=== PATIENT | female | born 1940 | race Caucasian/White ===

== ENCOUNTER 2016-11-15 17:58 | Emergency (ER) | payer MEDICARE, OTHER ==
--- NOTE | 2016-11-15 18:30 | ER Document Report ---
ED Medical Screen (RME) - General Stated Complaint: ABDOMINAL PAIN Notes: 76 yo female c/o left flank pain x 2 days. has had mild pain, but was able to stretch and relieve pain. pain intensified today. nonradiating. aggrevated with movement. no dysuria. no fever. no nausea. TRAVEL OUTSIDE OF THE [place] IN LAST 30 DAYS: No - Related Data Allergies/Adverse Reactions: No Known Allergies Allergy (Verified 11/15/16 18:25) Past Medical History - Past Medical History Cardiac Medical History: Reports: Hx Coronary Artery Disease, Hx Hypertension Denies: Hx Heart Attack Pulmonary Medical History: Denies: Hx Asthma, Hx Bronchitis, Hx COPD, Hx Pneumonia Neurological Medical History: Denies: Hx Cerebrovascular Accident, Hx Seizures Musculoskeltal Medical History: Denies Hx Arthritis Past Surgical History: Denies: Hx Hysterectomy - Immunizations Hx Diphtheria, Pertussis, Tetanus Vaccination: Yes Physical Exam - Vital signs Vitals: Temp Pulse Resp BP Pulse Ox 98.1 F 75 16 152/77 H 97 11/15/16 18:23 11/15/16 18:23 11/15/16 18:23 11/15/16 18:23 11/15/16 18:23 Course - Vital Signs Vital signs: Temp Pulse Resp BP Pulse Ox 98.1 F 75 16 152/77 H 97 11/15/16 18:23 11/15/16 18:23 11/15/16 18:23 11/15/16 18:23 11/15/16 18:23
[2016-11-15 19:05] LABS: ABSOLUTE BASOPHILS # (AUTO) 0.1 10^3/uL (0.0-0.2); ABSOLUTE EOSINOPHILS # (AUTO) 0.4 10^3/uL (0.0-0.6); ABSOLUTE LYMPHOCYTES (AUTO) 2.6 10^3/uL (0.5-4.7); ABSOLUTE MONOCYTES (AUTO) 0.6 10^3/uL (0.1-1.4); ABSOLUTE NEUT (AUTO) 4.8 10^3/uL (1.7-8.2); BASOPHILS % (AUTO) 1.3 % (0-2); EOSINOPHILS % (AUTO) 4.5 % (0-6); HEMATOCRIT 36.7 % (36.0-47.0); HGB HCT DIFFERENCE 2.3; LYMPHOCYTES % (AUTO) 30.2 % (13-45); MEAN CORPUSCULAR HEMOGLOBIN 30.8 pg (27.0-33.4); MEAN CORPUSCULAR HGB CONC 35.6 g/dL (32.0-36.0); MEAN CORPUSCULAR VOLUME 87 fl (80-97); MONOCYTES % (AUTO) 6.7 % (3-13); RED BLOOD COUNT 4.23 10^6/uL (3.72-5.28); RED CELL DISTRIBUTION WIDTH 13.6 % (11.5-14.0); SEGMENTED NEUTROPHILS % (AUTO) 57.3 % (42-78); WHITE BLOOD COUNT 8.4 10^3/uL (4.0-10.5)
[2016-11-15 19:32] LABS: ALANINE AMINOTRANSFERASE 76 U/L (9-52); ALBUMIN 3.9 g/dL (3.5-5.0); ALKALINE PHOSPHATASE 75 U/L (38-126); ANION GAP 10 (5-19); ASPARTATE AMINO TRANSFERASE 71 U/L (14-36); BILIRUBIN,TOTAL 0.6 mg/dL (0.2-1.3); BLOOD UREA NITROGEN 25 mg/dL (7-20); CALCIUM 9.1 mg/dL (8.4-10.2); CARBON DIOXIDE 29 mmol/L (22-30); CHLORIDE 96 mmol/L (98-107); CREATININE RESULT 1.07 mg/dL (0.52-1.25); GLUCOSE 88 mg/dL (75-110); POTASSIUM 4.1 mmol/L (3.6-5.0); SODIUM 135.3 mmol/L (137-145); TOTAL PROTEIN 7.3 g/dL (6.3-8.2)
[2016-11-15] MEDS ORDERED: KETOROLAC TROMETHAMINE INJ/PF 30 MG/1 ML SDV IV ONE (20:18)
[2016-11-15] MEDS ORDERED: NORMAL SALINE 1000 ML 1,000 ML IV ONE (20:18)
--- NOTE | 2016-11-15 20:19 | ER Document Report ---
ED General Pain - General Chief Complaint: Back Pain Stated Complaint: ABDOMINAL PAIN Mode of Arrival: Ambulatory Information source: Patient Notes: Patient is a 76 year old female who presents to the ER today for left flank and side pain that began yesterday. She denies any injury, but does have history of kidney stones. She denies any dysuria, hematuria, abdominal pain, fever, chills, nausea, vomiting. She states that it hurts worse with movement but if she sits still she feels much better. She denies any radiation down the left leg, numbness or tingling. TRAVEL OUTSIDE OF THE [place] IN LAST 30 DAYS: No - Related Data Allergies/Adverse Reactions: No Known Allergies Allergy (Verified 11/15/16 18:25) Past Medical History - General Information source: Patient - Social History Smoking Status: Never Smoker Chew tobacco use (# tins/day): No Frequency of alcohol use: None Drug Abuse: None Family History: Reviewed & Not Pertinent Patient has suicidal ideation: No Patient has homicidal ideation: No - Past Medical History Cardiac Medical History: Reports: Hx Coronary Artery Disease, Hx Hypertension Denies: Hx Heart Attack Pulmonary Medical History: Denies: Hx Asthma, Hx Bronchitis, Hx COPD, Hx Pneumonia Neurological Medical History: Denies: Hx Cerebrovascular Accident, Hx Seizures Renal/ Medical History: Denies: Hx Peritoneal Dialysis Musculoskeltal Medical History: Denies Hx Arthritis Past Surgical History: Denies: Hx Hysterectomy - Immunizations Hx Diphtheria, Pertussis, Tetanus Vaccination: Yes Hx Pneumococcal Vaccination: 11/05/12 Review of Systems - Review of Systems Constitutional: No symptoms reported EENT: No symptoms reported Cardiovascular: No symptoms reported Respiratory: No symptoms reported Gastrointestinal: No symptoms reported Genitourinary: See HPI Female Genitourinary: No symptoms reported Musculoskeletal: See HPI Skin: No symptoms reported Hematologic/Lymphatic: No symptoms reported Neurological/Psychological: No symptoms reported Physical Exam - Vital signs Vitals: Temp Pulse Resp BP Pulse Ox 98.1 F 75 16 152/77 H 97 11/15/16 18:23 11/15/16 18:23 11/15/16 18:23 11/15/16 18:23 11/15/16 18:23 - Notes Notes: PHYSICAL EXAMINATION: GENERAL: Crying, holding left side, obviously in pain, in mild acute distress. HEAD: Atraumatic, normocephalic. EYES: Pupils equal round and reactive to light, extraocular movements intact, sclera anicteric, conjunctiva are normal. NECK: Normal range of motion, supple without lymphadenopathy LUNGS: CTAB and equal. No wheezes rales or rhonchi. HEART: Regular rate and rhythm without murmurs ABDOMEN: Soft, left side tenderness. No guarding, no rebound BACK: Left lower back tenderness, no vertebral tenderness, normal ROM GI/: Mild left CVA tenderness EXTREMITIES: Normal range of motion, no pitting edema. No cyanosis. NEUROLOGICAL: Cranial nerves grossly intact. Normal sensory/motor exams. PSYCH: Normal mood, normal affect. SKIN: Warm, Dry, normal turgor, no rashes or lesions noted Course - Re-evaluation Re-evalutation: 11/16/16 07:02 Lab work is unremarkable today including a normal urinalysis with no hematuria. CAT scan was performed to rule out kidney stone and was negative. It did show an abdominal aortic aneurysm that has grown from 3.1 cm to 4.4 cm since 2008 but has no evidence of leakage. In it also showed some kidney atrophy. On lab work kidney function is not worrisome. I have advised patient she needs to follow-up with who follows her for her abdominal aortic aneurysm as it has grown. It is not surgical at this point. Patient feels much better after pain medication and muscle relaxers and can move without any pain. She would like to go home. - Vital Signs Vital signs: Temp Pulse Resp BP Pulse Ox 97.8 F 52 L 16 138/57 H 95 11/16/16 00:27 11/16/16 00:27 11/16/16 00:27 11/16/16 00:27 11/16/16 00:27 - Laboratory Result Diagrams: 11/15/16 18:30 11/15/16 18:30 Laboratory results interpreted by me: 11/15/16 11/15/16 18:30 20:10 Sodium 135.3 L Chloride 96 L BUN 25 H Est GFR (Non-Af Amer) 50 L AST 71 H ALT 76 H Ur Leukocyte Esterase TRACE H Discharge - Discharge Clinical Impression: Left low back pain Qualifiers: Chronicity: acute Sciatica presence: without sciatica Qualified Code(s): M54.5 - Low back pain Condition: Stable Disposition: HOME, SELF-CARE Instructions: Ice Packs ([facility]), Low Back Pain ([facility]), Warm Packs ([facility]) Additional Instructions: Your abdominal aortic aneurysm has grown since 2008, still not at the point where you need surgery but please follow up with whoever follows this for you. Return immediately for any new or worsening symptoms. Follow up with primary care provider, call tomorrow to make followup appointment. Prescriptions: Methocarbamol [Robaxin 500 mg Tablet] 500 mg PO QID #40 tablet
[2016-11-15 20:25] LABS: APPEARANCE,URINE CLEAR; BILIRUBIN,URINE NEGATIVE (NEGATIVE); GLUCOSE, URINE NEGATIVE (NEGATIVE); KETONES,URINE NEGATIVE (NEGATIVE); LEUKOCYTE ESTERASE,URINE TRACE (NEGATIVE); NITRITE,URINE NEGATIVE (NEGATIVE); PROTEIN,URINE NEGATIVE (NEGATIVE); URINE SPECIFIC GRAVITY 1.009; UROBILINOGEN,URINE NEGATIVE mg/dL (<2.0)
[2016-11-15] MEDS ORDERED: OXYCODONE-ACETAMINOPHEN 5-325 MG TABLET PO ONE (21:31)
[2016-11-15] MEDS ORDERED: CYCLOBENZAPRINE HCL 10 MG TABLET PO ONE (22:44)
[2016-11-16 03:54] VITALS: BP 138/57
== END 2016-11-16 00:25 | disposition home or self-care (01) ==
LOC: ER 17:58
DX: M54.5 Low back pain (principal); I71.4 Abdominal aortic aneurysm, without rupture; R10.9 Unspecified abdominal pain; I25.10 Atherosclerotic heart disease of native coronary artery without angina pectoris; I12.9 Hypertensive chronic kidney disease with stage 1 through stage 4 chronic kidney disease, or unspecified chronic kidney disease; N18.9 Chronic kidney disease, unspecified; Z87.442 Personal history of urinary calculi
CPT/HCPCS: 99284; 36415; 85025; 80053; 81001; 76380; A9270 ×2

== ENCOUNTER → 2017-07-16 | Outpatient (CLI) | payer MEDICARE, OTHER ==
--- NOTE | 2017-07-16 13:18 | WOMENS IMAGING REPORT ---
EXAM DESCRIPTION: BONE DENSITY HIP/SPINE COMPLETED DATE/TIME: 07/16/2017 1:02 pm REASON FOR STUDY: OSTEOPOROSIS M81.0 AGE-RELATED OSTEOPOROSIS W/O CURRENT PATHOLOGICAL FRAC COMPARISON: 08/18/2010 06/22/2008 10/11/2004 TECHNIQUE: Dual-Energy X-ray Absorptiometry (DEXA) of the AP Spine and Hip. LIMITATIONS: None. FINDINGS: LUMBAR SPINE: The bone mineral density (BMD) measured from L1-L4 in the AP projection correlates with a T-score of 4.3, which is normal as defined by the World Health Organization. HIP: The bone mineral density (BMD) measured in the left hip correlates with a T-score of -2.0 in the femo ral neck, which is osteopenia as defined by the World Health Organization. IMPRESSION: 1. LUMBAR SPINE: Normal 2. HIP: Osteopenia COMMENT: The World Health Organization defines low BMD as follows: T-score: Normal: Greater than -1.0 Osteopenia: Between -1.0 and -2.5 Osteoporosis: Less than -2.5 without fractures Established osteoporosis: Less than -2.5 with fractures In general, you may wish to consider: Diagnosis Treatment Follow-up DEXA Normal BMD Prevention 2-3 years Osteopenia Prevention/Therapy 1-2 years Osteoporosis Therapy Yearly TECHNICAL DOCUMENTATION: JOB ID: [id number]- All Rights Reserved
== END ==
LOC: WI 12:35
PROVIDERS: ATTEND Internal Medicine
DX: M81.0 Age-related osteoporosis without current pathological fracture (principal)
CPT/HCPCS: 77080

== ENCOUNTER 2017-07-22 10:06 | Emergency (ER) | payer MEDICARE, OTHER ==
[2017-07-22 10:12] VITALS: BP 144/68
--- NOTE | 2017-07-22 10:36 | ER Document Report ---
ED General - General Chief Complaint: High Blood Pressure Stated Complaint: BLOOD PRESSUE PROBLEM Time Seen by Provider: 07/22/17 10:35 TRAVEL OUTSIDE OF THE [place] IN LAST 30 DAYS: No - HPI Patient complains to provider of: Blood pressure issue Notes: Patient coming in for further evaluation of her blood pressure. Patient with this morning and had a elevated reading of 180 systolically came to the ER for further evaluation. Patient otherwise states no other symptoms resting comfortably upon my evaluation states over the past 4 months intermittent headaches and fatigue states recent change of her blood pressure medication from termination pill losartan hydrochlorothiazide to now just losartan. Patient states compliant with her medications did take him this morning patient also states takes metoprolol at 50 mg. Patient states compliant with that medication as well. Blood pressure here upon initial arrival to ER she was systolic of 144. Patient is concerned that her machine may be reading wrong. Denies fevers chills nausea vomiting chest pain abdominal pain - Related Data Allergies/Adverse Reactions: No Known Allergies Allergy (Verified 11/15/16 18:25) Past Medical History - Social History Smoking Status: Current Every Day Smoker Chew tobacco use (# tins/day): - 6-8 cigarettes/day Frequency of alcohol use: None Drug Abuse: None Family History: Reviewed & Not Pertinent - Past Medical History Cardiac Medical History: Reports: Hx Coronary Artery Disease, Hx Hypertension Denies: Hx Heart Attack Pulmonary Medical History: Denies: Hx Asthma, Hx Bronchitis, Hx COPD, Hx Pneumonia Neurological Medical History: Denies: Hx Cerebrovascular Accident, Hx Seizures Renal/ Medical History: Denies: Hx Peritoneal Dialysis Musculoskeltal Medical History: Denies Hx Arthritis Past Surgical History: Denies: Hx Hysterectomy - Immunizations Hx Diphtheria, Pertussis, Tetanus Vaccination: Yes Hx Pneumococcal Vaccination: 11/05/12 Review of Systems - Review of Systems Constitutional: Other - Blood pressure concern EENT: No symptoms reported Cardiovascular: No symptoms reported Respiratory: No symptoms reported Gastrointestinal: No symptoms reported Genitourinary: No symptoms reported Female Genitourinary: No symptoms reported Musculoskeletal: No symptoms reported Skin: No symptoms reported Hematologic/Lymphatic: No symptoms reported Neurological/Psychological: No symptoms reported Physical Exam - Vital signs Vitals: Temp Pulse Resp BP Pulse Ox 98.3 F 75 16 144/68 H 97 07/22/17 10:10 07/22/17 10:10 07/22/17 10:10 07/22/17 10:10 07/22/17 10:10 Interpretation: Normal - General General appearance: Appears well, Alert - HEENT Head: Normocephalic, Atraumatic Eyes: Normal Pupils: PERRL - Respiratory Respiratory status: No respiratory distress Chest status: Nontender Breath sounds: Normal Chest palpation: Normal - Cardiovascular Rhythm: Regular Heart sounds: Normal auscultation Murmur: No - Abdominal Inspection: Normal Distension: No distension Bowel sounds: Normal Tenderness: Nontender Organomegaly: No organomegaly - Back Back: Normal, Nontender - Extremities General upper extremity: Normal inspection, Nontender, Normal color, Normal ROM , Normal temperature General lower extremity: Normal inspection, Nontender, Normal color, Normal ROM , Normal temperature, Normal weight bearing. No: Trey's sign - Neurological Neuro grossly intact: Yes Cognition: Normal Orientation: AAOx4 Annie Coma Scale Eye Opening: Spontaneous Annie Coma Scale Verbal: Oriented Hershey Coma Scale Motor: Obeys Commands Annie Coma Scale Total: 15 Speech: Normal Motor strength normal: LUE, RUE, LLE, RLE Sensory: Normal - Psychological Associated symptoms: Normal affect, Normal mood - Skin Skin Temperature: Warm Skin Moisture: Dry Skin Color: Normal Course - Re-evaluation Re-evalutation: 07/22/17 10:58 Blood pressure here in the right arm with patient positioning shows a systolic of 120 ER machine read 116. Patient still remains asymptomatic. Explained to the patient that with her high readings early in the morning before she takes her medication she may want to discuss with her family physician of extending her increasing her metoprolol dose. Recommend patient continue to monitor blood pressure take blood pressure medications at same time recorded 2 readings 1 in the morning while at night and follow-up with your primary care physician in the next 2-3 weeks. - Vital Signs Vital signs: Temp Pulse Resp BP Pulse Ox 98.3 F 75 16 144/68 H 97 07/22/17 10:10 07/22/17 10:10 07/22/17 10:10 07/22/17 10:10 07/22/17 10:10 Discharge - Discharge Clinical Impression: Blood pressure concerns Condition: Good Instructions: High Blood Pressure ([facility]) Additional Instructions: Continue take your blood pressure medication as previously prescribed. However highly recommend that she follow-up with your primary care physician in approximately 2-3 weeks. Continue to take her medication at the same time each day. Continue to take her blood pressure readings earlier in the morning I would also recommend taking her blood pressure around 11:00 noon at you take your morning medication. Return to the ER for any concerns.
== END 2017-07-22 10:38 | disposition home or self-care (01) ==
LOC: ER 10:06
DX: R03.0 Elevated blood-pressure reading, without diagnosis of hypertension (principal); F17.210 Nicotine dependence, cigarettes, uncomplicated
CPT/HCPCS: 99283

== ENCOUNTER → 2017-10-09 | Outpatient (CLI) | payer MEDICARE, OTHER ==
--- NOTE | 2017-10-09 14:29 | WOMENS IMAGING REPORT ---
EXAM DESCRIPTION: 3D SCREENING MAMMO BILAT COMPLETED DATE/TIME: 10/09/2017 9:32 am REASON FOR STUDY: ROUTINE SCREENING; Z12.31 Z12.31 ENCNTR SCREEN MAMMOGRAM FOR MALIGNANT NEOPLASM O F TREY COMPARISON: None. TECHNIQUE: Standard craniocaudal and mediolateral oblique views of each breast recorded using digita l acquisition and breast tomosynthesis. LIMITATIONS: None. FINDINGS: Findings present which are benign by mammographic criteria. No suspicious masses, calcifi cations or architectural distortion. Pertinent benign findings: Benign calcifications. Read with the assistance of CAD. .[facility] - R2 Cenova Version 1.3 .[facility] - R2 Cenova Version 1.3 .[facility] - R2 Cenova Version 2.4 .[facility] - R2 Cenova Version 2.4 .[facility] - R2 Professor Of Chemistry Version 9.2 Benign mammographic findings may include one or more of the following: Smooth masses, popcorn/rim/co arse calcifications, asymmetries, post-procedure changes, and lesions with long-standing stability. IMPRESSION: BENIGN MAMMOGRAPHIC FINDINGS. BIRADS 2 BREAST DENSITY: b. There are scattered areas of fibroglandular density. BIRAD: 2 BENIGN FINDING(S) RECOMMENDATION: RECOMMENDATION: ROUTINE SCREENING COMMENT: The patient has been notified of the results by letter per MQSA requirements. Additional no tification policies are in place for contacting patient with suspicious or incomplete findings. Quality ID #[id number]: The [employer] recommends an annual screening mammogram for women aged 40 years or over. This facility utilizes a reminder system to ensure that all patients receive reminder letters, and/or direct phone calls for appointments. This includes reminders for routine scr eening mammograms, diagnostic mammograms, or other Breast Imaging Interventions when appropriate. Th is patient will be placed in the appropriate reminder system. The [employer] (ACR) has developed recommendations for screening MRI of the breast s in certain patient populations, to be used in conjunction with mammography. Breast MRI surveillanc e may be appropriate for women with more than 20% lifetime risk of developing breast cancer as deter mined by genetic testing, significant family history of the disease, or history of mantle radiation f or Hodgkins Disease. ACR Practice Guidelines 2008. DBT Technology DBT is a type of tomographic mammography. With conventional mammography, overlapping breast tissue ma y make lesions difficult to detect, even with good compression. DBT uses an x-ray tube that rotates a round the breast, taking images at different angles. These images are then combined to create thin sl ices of the breast that the radiologist can view as a 3D reconstruction. The Hologic unit can perform full-field digital mammograms (2D imaging); or DBT (3D imaging); or both, in a combination mode that quickly performs both the mammogram and the tomosynthesis scan while the breast is still compressed. PQRS 6045F: Fluoroscopic imaging is not utilized for breast tomosynthesis. TECHNICAL DOCUMENTATION: FINDING NUMBER: (1) ASSESSMENT: (1) JOB ID: [id number] [employer]- All Rights Reserved
== END ==
LOC: WI 08:21
PROVIDERS: ATTEND Internal Medicine
DX: Z12.31 Encounter for screening mammogram for malignant neoplasm of breast (principal)
CPT/HCPCS: 77063; G0202; 77067

== ENCOUNTER 2017-12-15 10:49 | Emergency (ER) | payer MEDICARE, OTHER ==
[2017-12-15 11:21] LABS: ABSOLUTE BASOPHILS # (AUTO) 0.1 10^3/uL (0.0-0.2); ABSOLUTE EOSINOPHILS # (AUTO) 0.3 10^3/uL (0.0-0.6); ABSOLUTE LYMPHOCYTES (AUTO) 2.3 10^3/uL (0.5-4.7); ABSOLUTE MONOCYTES (AUTO) 0.5 10^3/uL (0.1-1.4); ABSOLUTE NEUT (AUTO) 4.7 10^3/uL (1.7-8.2); BASOPHILS % (AUTO) 1.2 % (0-2); EOSINOPHILS % (AUTO) 4.1 % (0-6); HEMATOCRIT 39.1 % (36.0-47.0); HEMOGLOBIN 13.4 g/dL (12.0-15.5); MEAN CORPUSCULAR HEMOGLOBIN 30.4 pg (27.0-33.4); MEAN CORPUSCULAR HGB CONC 34.4 g/dL (32.0-36.0); MEAN CORPUSCULAR VOLUME 88 fl (80-97); MONOCYTES % (AUTO) 6.1 % (3-13); PLATELET COUNT 268 10^3/uL (150-450); RED BLOOD COUNT 4.43 10^6/uL (3.72-5.28); SEGMENTED NEUTROPHILS % (AUTO) 59.6 % (42-78); TOTAL CELLS COUNTED % (AUTO) 100 %; WHITE BLOOD COUNT 7.8 10^3/uL (4.0-10.5)
[2017-12-15 11:44] LABS: ALANINE AMINOTRANSFERASE 36 U/L (9-52); ALBUMIN 3.6 g/dL (3.5-5.0); ALKALINE PHOSPHATASE 61 U/L (38-126); ANION GAP 7 (5-19); ASPARTATE AMINO TRANSFERASE 34 U/L (14-36); BILIRUBIN,DIRECT 0.4 mg/dL (0.0-0.4); BILIRUBIN,TOTAL 0.6 mg/dL (0.2-1.3); BLOOD UREA NITROGEN 16 mg/dL (7-20); CALCIUM 9.4 mg/dL (8.4-10.2); CARBON DIOXIDE 29 mmol/L (22-30); CHLORIDE 102 mmol/L (98-107); CREATINE KINASE 59 U/L (30-135); GLUCOSE 141 mg/dL (75-110); POTASSIUM 4.5 mmol/L (3.6-5.0); SODIUM 137.7 mmol/L (137-145); TOTAL PROTEIN 6.5 g/dL (6.3-8.2)
--- NOTE | 2017-12-15 11:47 | ER Document Report ---
ED Dizziness/Weakness - General Chief Complaint: Dizziness Stated Complaint: WEAKNESS Time Seen by Provider: 12/15/17 11:41 Notes: Patient says that she began to feel as if she was going to pass out about 9:30 AM this morning. She was nauseated although she never vomited. She noticed her lips were quivering and she became very sweaty. She had some discomfort in her abdomen. She has a history of mesenteric ischemia, but this current abdominal discomfort does not feel like symptoms from her mesenteric ischemia. Patient says that she ate breakfast about 9:00. She saw her local temper mill roller , Dr. Díaz, who is adjusting her blood pressure medicine. He discontinued her Toprol that she was then taking and had her start taking Coreg twice a day, her first dose is being yesterday and she also took one this morning with her breakfast. They took her blood pressure earlier this morning and it was 179/90. After she had her breakfast and her Coreg this morning, she started having all these symptoms and they were unable to obtain a reading on her blood pressure machine. He kept saying "error". Patient denies having any chest pains. No significant shortness of breath. Nauseated but never vomited. No UTI symptoms. No fevers, but did have the sweats. PMH: Appendectomy, right hip replacement, thyroid surgery, hypertension, cholesterol, MVP. TRAVEL OUTSIDE OF THE [place] IN LAST 30 DAYS: No - Related Data Allergies/Adverse Reactions: No Known Allergies Allergy (Verified 11/15/16 18:25) Past Medical History - Social History Smoking Status: Current Some Day Smoker Cigarette use (# per day): Yes Chew tobacco use (# tins/day): No Frequency of alcohol use: None Drug Abuse: None Family History: Reviewed & Not Pertinent Patient has suicidal ideation: No Patient has homicidal ideation: No - Past Medical History Cardiac Medical History: Reports: Hx Coronary Artery Disease, Hx Hypercholesterolemia, Hx Hypertension Denies: Hx Heart Attack GI Medical History: Reports: Other - History of mesenteric ischemia. Musculoskeltal Medical History: Denies Hx Arthritis Past Surgical History: Reports: Hx Adenoidectomy, Hx Orthopedic Surgery - right hip replacement, Hx Thyroid Surgery - removed. Denies: Hx Cholecystectomy, Hx Hysterectomy - Immunizations Hx Diphtheria, Pertussis, Tetanus Vaccination: Yes Hx Pneumococcal Vaccination: 11/05/12 Review of Systems - Review of Systems Notes: REVIEW OF SYSTEMS: CONSTITUTIONAL : Denies fever, but heavy sweats this morning at the time of her symptoms, but resolved now. EENT: Denies eye, ear, nose or mouth or throat pain or other symptoms. CARDIOVASCULAR: Denies chest pain. RESPIRATORY: Denies cough, chest congestion, or shortness of breath. GASTROINTESTINAL: See HPI. GENITOURINARY: Denies difficulty or painful urinating, urinary frequency, blood in urine. MUSCULOSKELETAL: Denies back or neck pain. Denies joint pain or swelling. SKIN: Denies rash or skin lesions. NEUROLOGICAL: Denies LOC or altered mental status. Denies headache. Denies sensory loss or motor deficits. ALL OTHER SYSTEMS REVIEWED AND NEGATIVE. Physical Exam - Vital signs Vitals: Pulse Resp BP Pulse Ox 70 18 124/55 L 97 12/15/17 11:10 12/15/17 11:10 12/15/17 11:10 12/15/17 11:10 Interpretation: Normal - Notes Notes: PHYSICAL EXAMINATION: GENERAL: Well-appearing, in no acute distress. Vital signs are currently normal at the bedside. HEAD: Atraumatic, normocephalic. NECK: Normal range of motion, supple. No carotid bruits heard. LUNGS: Breath sounds clear except for an occasional wheeze heard and equal bilaterally. HEART: Regular rate and rhythm without murmurs. ABDOMEN: Soft, nontender. No guarding or rebound. No masses. No bruits heard. BACK: No tenderness throughout entire back. EXTREMITIES: Normal range of motion without pain. NEUROLOGICAL: Normal speech, normal gait. Normal sensory, motor, and reflex exams. Awake, alert, and oriented x3. Cranial nerves normal. PSYCH: Normal mood, normal affect. SKIN: Warm, dry, no rashes. Course - Re-evaluation Re-evalutation: 12/15/17 14:35 Labs are all normal. 12/15/17 14:35 Patient's vitals remain stable and her blood pressure is 140/73 with a heart rate of 67 and O2 sat of 97%. 12/15/17 14:36 Patient has no symptoms or complaints at this time. Most likely culprit here is her recent change in medications. I have advised the patient that she can resume taking both of the pills of Coreg a day, as instructed or she could leave one off until she talks with Dr. Díaz on Sunday. - Vital Signs Vital signs: Temp Pulse Resp BP Pulse Ox 98.0 F 70 23 H 150/65 H 95 12/15/17 11:32 12/15/17 11:10 12/15/17 14:00 12/15/17 14:00 12/15/17 14:00 - Laboratory Result Diagrams: 12/15/17 10:30 12/15/17 10:30 Laboratory results interpreted by me: 12/15/17 12/15/17 10:30 11:36 Est GFR ( Amer) 58 L Est GFR (Non-Af Amer) 48 L Glucose 141 H Urine Protein 100 H Ur Leukocyte Esterase SMALL H - EKG Interpretation by Me EKG shows normal: Sinus rhythm Rate: Normal Rhythm: NSR, APC's Voltage: Consistant with LVH Discharge - Discharge Clinical Impression: Near syncope, Medication side effects Condition: Stable Disposition: HOME, SELF-CARE Additional Instructions: NEAR SYNCOPAL EPISODE: Syncope or near syncope (fainting or near-fainting) can occur from many different health problems. Or it can be a simple fainting spell requiring no treatment. It is safe for you to go home, but further evaluation will likely be necessary. Your work-up may include tests for internal bleeding, heart disease, medication problems, or near-strokes. Tests are not always required, however, depending on the nature of your problem. The warning signs of an impending faint include: dizziness, lightheadedness , nausea, hot flashes, tingling, and weakness. If this happens, lay down and put your feet up, then wait until all of these symptoms have passed before standing up again. If these episodes become recurrent, or if you develop chest pain, heart palpitations, mental confusion, blurred vision, or headache, then you should call the physician, or go to the emergency room. Medication Side Effects Your unpleasant symptoms are due to a drug you're taking. These symptoms are a common side effect of the medicine. It's not a true allergy. We stop any unnecessary drugs when bothersome side effects occur. Sometimes we'll substitute a different type of drug. In other cases, we must continue the drug. If so, we try to find a way to decrease the side effects. Many side effects decrease with time. Call us if the symptoms don't go away. NORMAL EXAM AND WORKUP: At this time, your examination and workup show no significant abnormality. No significant abnormal physical findings were noted. All laboratory, EKG, and imaging (x-ray, CT scans, ultrasound) studies that were ordered show no significant abnormality. Although your examination and all studies that were ordered showed no significant abnormal finding, there are no examinations and no studies that are 100% accurate. There is always the possibility that some abnormality could exist and not be detected with physical examination or within the limits and capabilities of laboratory and other studies. You should return or follow up as you were instructed on your visit today for further evaluation if your symptoms do not resolve. FOLLOW-UP CARE: If you have been referred to a physician for follow-up care, call the physician s office for an appointment as you were instructed or within the next two days. If you experience worsening or a significant change in your symptoms, notify the physician immediately or return to the Emergency Department at any time for re-evaluation. Follow-up with Dr. Díaz Sunday and make them aware of your visit to the emergency department. If you wish to continue the Coreg, I think it will be okay to take it as directed. However, if you have concerns, leave 1 of the Coreg pills off each day until you talk with Dr. Díaz office on Sunday. Return for reevaluation if you develop new or worsening symptoms, such as chest pain, loss of consciousness, etc.
[2017-12-15 12:07] LABS: CREATINE KINASE MB 1.32 ng/mL (<4.55)
[2017-12-15 12:09] LABS: TROPONIN I < 0.012 ng/mL
[2017-12-15 12:11] LABS: APPEARANCE,URINE SLIGHTLY-CLOUDY; BILIRUBIN,URINE NEGATIVE (NEGATIVE); COLOR,URINE YELLOW; GLUCOSE, URINE NEGATIVE (NEGATIVE); KETONES,URINE NEGATIVE (NEGATIVE); LEUKOCYTE ESTERASE,URINE SMALL (NEGATIVE); NITRITE,URINE NEGATIVE (NEGATIVE); PROTEIN,URINE 100 mg/dL (NEGATIVE); URINE SPECIFIC GRAVITY 1.011; UROBILINOGEN,URINE NEGATIVE mg/dL (<2.0)
[2017-12-15 14:46] VITALS: BP 130/60
--- NOTE | 2017-12-16 09:01 | EKG REPORT ---
SEVERITY:- ABNORMAL ECG - SINUS RHYTHM ATRIAL PREMATURE COMPLEX PROBABLE LVH WITH SECONDARY REPOL ABNRM ANTERIOR Q WAVES, POSSIBLY DUE TO LVH : Confirmed by: Donte Bennett 16-Dec-2017 09:00:44
== END 2017-12-15 14:55 | disposition home or self-care (01) ==
LOC: ER 10:49
DX: R55 Syncope and collapse (principal); T50.905A Adverse effect of unspecified drugs, medicaments and biological substances, initial encounter; R53.1 Weakness; R11.0 Nausea; F17.210 Nicotine dependence, cigarettes, uncomplicated; I25.10 Atherosclerotic heart disease of native coronary artery without angina pectoris; E78.00 Pure hypercholesterolemia, unspecified; I10 Essential (primary) hypertension; Y92.9 Unspecified place or not applicable
CPT/HCPCS: 36415; 80053; 81001; 82550; 82553; 84484; 85025; 93005; 93010; 99284

== ENCOUNTER → 2018-05-13 | Outpatient (CLI) | payer MEDICARE, OTHER ==
--- NOTE | 2018-05-13 14:47 | XCELERA REPORT ---
[address] [address] Lower Extremity Arterial Evaluation Name: DIO JARQUIN I Age: 77 yrs Gender: Female : 1940 Patient Status: Outpatient Patient Location: Study Date: 05/13/2018 09:18 AM Procedure: A color flow and duplex scan of the lower extremity arteries was performed bilaterally with velocity and waveform anaylsis. Ankle brachial indicies performed. Reason For Study: FOOT PAIN Ordering Physician: ILSA MOORE Performed By: Zane Chapa Measurements and Calculations Right Left PERSONNEL PLACEMENT SPECIALIST PSV 31.4 81.2 cm/sec Prox PFA PSV -22.0 -35.4 cm/sec Prox SFA PSV 35.0 61.3 cm/sec Mid SFA PSV -28.7 -49.3 cm/sec Dist SFA PSV -27.5 -34.3 cm/sec Prox Pop A PSV 24.9 40.2 cm/sec Dist SOTERO PSV 10.6 23.8 cm/sec Dist LETTER[employer] PRINTING MACHINIST PSV 15.9 -24.4 cm/sec Trey Pedis PSV 13.2 23.6 cm/sec Right Side Arterial Evaluation Diminished velocities and monophasic waveforms noted from the Common Femoral artery to the infrageniculate vessels. 50-99 % stenosis at the Aorto Iliac inflow. Ankle Brachial index unable to obtain due to low velocity.. Left Side Arterial Evaluation Diminished velocities and monophasic waveforms noted from the Common Femoral artery to the infrageniculate vessels. 50-99 % stenosis at the Aorto Iliac inflow. Ankle Brachial index 0.6 in the Dorsalis Pedis.. Interpretation Summary Severe hemodynamically significant lesions in the bilateral lower extremities, on duplex imaging, at rest. : ILSA MOORE [place]
== END ==
LOC: SP 08:40
PROVIDERS: ATTEND Podiatrist Foot Surgery
DX: M79.672 Pain in left foot (principal); M79.671 Pain in right foot; M79.89 Other specified soft tissue disorders; I73.9 Peripheral vascular disease, unspecified
CPT/HCPCS: 93922; 93925

== ENCOUNTER 2018-07-08 13:18 | Emergency (ER) | payer MEDICARE, OTHER ==
--- NOTE | 2018-07-08 14:01 | ER Document Report ---
ED Medical Screen (RME) - General Chief Complaint: Abdominal Pain >50 Stated Complaint: BLOOD PRESSURE PROBLEM Time Seen by Provider: 07/08/18 13:59 Mode of Arrival: Ambulatory Information source: Patient Notes: This is a 77-year-old female with a history of hypertension, mesenteric ischemia , AAA who presents to the emergency room with some abdominal discomfort in the setting of a low blood pressure. Patient states she normally gets some pain after eating and ate breakfast this morning and started have pain. She does follow her blood pressure and she did have a blood pressure that was in the 70s systolic. In the emergency room, her blood pressure is 118/64. She is not in any acute distress at this time. TRAVEL OUTSIDE OF THE [place] IN LAST 30 DAYS: No - Related Data Allergies/Adverse Reactions: No Known Allergies Allergy (Verified 07/08/18 13:24) Past Medical History - Social History Chew tobacco use (# tins/day): No Frequency of alcohol use: None Drug Abuse: None - Past Medical History Cardiac Medical History: Reports: Hx Coronary Artery Disease, Hx Hypercholesterolemia, Hx Hypertension Denies: Hx Heart Attack Pulmonary Medical History: Denies: Hx Asthma, Hx Bronchitis, Hx COPD, Hx Pneumonia Neurological Medical History: Denies: Hx Seizures Renal/ Medical History: Denies: Hx Peritoneal Dialysis Musculoskeltal Medical History: Denies Hx Arthritis Past Surgical History: Reports: Hx Adenoidectomy, Hx Orthopedic Surgery - right hip replacement, Hx Thyroid Surgery - removed. Denies: Hx Cholecystectomy, Hx Hysterectomy - Immunizations Hx Diphtheria, Pertussis, Tetanus Vaccination: Yes Physical Exam - Vital signs Vitals: Temp Pulse Resp BP Pulse Ox 97.8 F 82 18 118/64 96 07/08/18 13:25 07/08/18 13:25 07/08/18 13:25 07/08/18 13:25 07/08/18 13:25 Course - Vital Signs Vital signs: Temp Pulse Resp BP Pulse Ox 97.8 F 82 18 118/64 96 07/08/18 13:25 07/08/18 13:25 07/08/18 13:25 07/08/18 13:25 07/08/18 13:25 Doctor's Discharge - Discharge Referrals: ILSA MOORE DPM [Primary Care Provider] - Follow up as needed
[2018-07-08 14:23] LABS: ABSOLUTE BASOPHILS # (AUTO) 0.2 10^3/uL (0.0-0.2); ABSOLUTE EOSINOPHILS # (AUTO) 0.4 10^3/uL (0.0-0.6); ABSOLUTE LYMPHOCYTES (AUTO) 2.4 10^3/uL (0.5-4.7); ABSOLUTE MONOCYTES (AUTO) 0.7 10^3/uL (0.1-1.4); ABSOLUTE NEUT (AUTO) 6.1 10^3/uL (1.7-8.2); BASOPHILS % (AUTO) 1.8 % (0-2); EOSINOPHILS % (AUTO) 3.9 % (0-6); HEMATOCRIT 38.7 % (36.0-47.0); HEMOGLOBIN 13.3 g/dL (12.0-15.5); LYMPHOCYTES % (AUTO) 24.5 % (13-45); MEAN CORPUSCULAR HEMOGLOBIN 30.3 pg (27.0-33.4); MEAN CORPUSCULAR HGB CONC 34.4 g/dL (32.0-36.0); MEAN CORPUSCULAR VOLUME 88 fl (80-97); MONOCYTES % (AUTO) 7.2 % (3-13); PLATELET COUNT 281 10^3/uL (150-450); RED BLOOD COUNT 4.39 10^6/uL (3.72-5.28); RED CELL DISTRIBUTION WIDTH 13.3 % (11.5-14.0); SEGMENTED NEUTROPHILS % (AUTO) 62.6 % (42-78); TOTAL CELLS COUNTED % (AUTO) 100 %; WHITE BLOOD COUNT 9.7 10^3/uL (4.0-10.5)
[2018-07-08 14:44] LABS: ALANINE AMINOTRANSFERASE 33 U/L (9-52); ALBUMIN 3.9 g/dL (3.5-5.0); ALKALINE PHOSPHATASE 73 U/L (38-126); ANION GAP 12 (5-19); ASPARTATE AMINO TRANSFERASE 35 U/L (14-36); BILIRUBIN,DIRECT 0.3 mg/dL (0.0-0.4); BILIRUBIN,TOTAL 0.6 mg/dL (0.2-1.3); BLOOD UREA NITROGEN 22 mg/dL (7-20); CALCIUM 9.4 mg/dL (8.4-10.2); CARBON DIOXIDE 25 mmol/L (22-30); CHLORIDE 101 mmol/L (98-107); GLUCOSE 88 mg/dL (75-110); POTASSIUM 4.7 mmol/L (3.6-5.0); SODIUM 137.5 mmol/L (137-145); TOTAL PROTEIN 7.5 g/dL (6.3-8.2)
--- NOTE | 2018-07-08 14:47 | ER Document Report ---
ED General - General Chief Complaint: Abdominal Pain >50 Stated Complaint: BLOOD PRESSURE PROBLEM Time Seen by Provider: 07/08/18 13:59 Mode of Arrival: Ambulatory TRAVEL OUTSIDE OF THE [place] IN LAST 30 DAYS: No - HPI Notes: 77-year-old female with history of mesenteric ischemia and AAA presents with 3 days of abdominal pain and episode of low blood pressure today. She has a history of hypertension and takes medications throughout the day with good control. She states blood pressure was in the 70s over 50s today. She has been having increasing abdominal pain after eating for the past 3 days. She describes it as a "toothache." She denies similar pain with a mesenteric ischemia. She was diagnosed with this a few years ago and told that she would from it in 6 months. She is followed by vascular surgery for her abdominal aneurysm that was last noted to be about 3 cm. Last bowel movement yesterday was normal without blood or diarrhea. No nausea or vomiting. No fevers. Denies urinary changes. Has history of appendectomy. No other abdominal surgeries. - Related Data Allergies/Adverse Reactions: No Known Allergies Allergy (Verified 07/08/18 13:24) Past Medical History - General Information source: Patient - Social History Smoking Status: Current Every Day Smoker Chew tobacco use (# tins/day): No Frequency of alcohol use: None Drug Abuse: None Family History: Reviewed & Not Pertinent Patient has suicidal ideation: No Patient has homicidal ideation: No - Past Medical History Cardiac Medical History: Reports: Hx Coronary Artery Disease, Hx Hypercholesterolemia, Hx Hypertension Denies: Hx Heart Attack Pulmonary Medical History: Denies: Hx Asthma, Hx Bronchitis, Hx COPD, Hx Pneumonia Neurological Medical History: Denies: Hx Seizures Renal/ Medical History: Denies: Hx Peritoneal Dialysis Musculoskeletal Medical History: Denies Hx Arthritis Past Surgical History: Reports: Hx Adenoidectomy, Hx Appendectomy, Hx Orthopedic Surgery - right hip replacement, Hx Thyroid Surgery - removed. Denies: Hx Cholecystectomy, Hx Hysterectomy - Immunizations Hx Diphtheria, Pertussis, Tetanus Vaccination: Yes Hx Pneumococcal Vaccination: 11/05/12 Review of Systems - Review of Systems Notes: Constitutional: Negative for fever. HENT: Negative for sore throat. Eyes: Negative for visual changes. Cardiovascular: Negative for chest pain. Respiratory: Negative for shortness of breath. Gastrointestinal: Positive for abdominal pain, negative for vomiting or diarrhea. Genitourinary: Negative for dysuria. Musculoskeletal: Negative for back pain. Skin: Negative for rash. Neurological: Negative for headaches, weakness or numbness. 10 point ROS negative except as marked above and in HPI. Physical Exam - Vital signs Vitals: Temp Pulse Resp BP Pulse Ox 97.8 F 82 18 118/64 96 07/08/18 13:25 07/08/18 13:25 07/08/18 13:25 07/08/18 13:25 07/08/18 13:25 - Notes Notes: PHYSICAL EXAMINATION: GENERAL: Well-appearing, well-nourished and in no acute distress. HEAD: Atraumatic, normocephalic. EYES: Pupils equal round and reactive to light, extraocular movements intact, conjunctiva are normal. ENT: nares patent, oropharynx clear without exudates. Moist mucous membranes. NECK: Normal range of motion, supple without lymphadenopathy LUNGS: Breath sounds clear to auscultation bilaterally and equal. No wheezes rales or rhonchi. HEART: Regular rate and rhythm, no chest wall tenderness ABDOMEN: Soft, mild left lower quadrant tenderness, normoactive bowel sounds. No guarding, no rebound. No masses appreciated. EXTREMITIES: Normal range of motion, no pitting or edema. No cyanosis. NEUROLOGICAL: Cranial nerves grossly intact. Normal speech, normal gait. Normal sensory and motor exams. PSYCH: Normal mood, normal affect. SKIN: Warm, Dry, normal turgor, no rashes or lesions noted. Course - Re-evaluation Re-evalutation: 07/08/18 19:27 Blood pressure has remained elevated during entire ED stay. Urine sent for culture. Given Rocephin for UTI. CT shows slight enlargement of aneurysm at 4.5 cm. Patient states she has a follow-up appointment in September with vascular surgery. Advised to call tomorrow to inform of size change. Given copy of all results. She states pain is not changed but she does not want anything for pain. She remains comfortable and is laughing in the bed. At this time will discharge with return precautions and follow-up recommendations. Verbal discharge instructions given a the bedside and opportunity for questions given. Medication warnings reviewed. Patient is in agreement with this plan and has verbalized understanding of return precautions and the need for primary care follow-up in the next 24-72 hours. Voice dictation software was used. Chart was reviewed, but errors may exist. - Vital Signs Vital signs: Temp Pulse Resp BP Pulse Ox 98.3 F 82 19 148/70 H 95 07/08/18 18:00 07/08/18 13:25 07/08/18 18:00 07/08/18 18:00 07/08/18 18:00 - Laboratory Result Diagrams: 07/08/18 14:02 07/08/18 14:02 Laboratory results interpreted by me: 07/08/18 07/08/18 07/08/18 14:02 15:32 16:54 BUN 22 H Est GFR ( Amer) 58 L Est GFR (Non-Af Amer) 48 L Lactic Acid 0.6 L Ur Leukocyte Esterase LARGE H - Diagnostic Test Radiology reviewed: Reports reviewed Discharge - Discharge Clinical Impression: UTI (urinary tract infection) Qualifiers: Urinary tract infection type: acute cystitis Hematuria presence: without hematuria Qualified Code(s): N30.00 - Acute cystitis without hematuria Abdominal pain Qualifiers: Abdominal location: left lower quadrant Qualified Code(s): R10.32 - Left lower quadrant pain AAA (abdominal aortic aneurysm) Qualifiers: Presence of rupture: without rupture Qualified Code(s): I71.4 - Abdominal aortic aneurysm, without rupture Condition: Stable Disposition: HOME, SELF-CARE Instructions: Abdominal Pain ([facility]), Urinary Tract Infection ([facility]) Additional Instructions: Return for worsening or concerning symptoms. Take all antibiotic. Follow up urine culture results with your doctor. Talk to vascular surgery about enlarged aortic aneurysm. Return for any worsening or concerning symptoms. Prescriptions: Cephalexin Monohydrate [Keflex 500 mg Capsule] 500 mg PO Q6H 7 Days #28 capsule Referrals: ILSA MOORE DPM [Primary Care Provider] - Follow up in 3-5 days
[2018-07-08 17:18] LABS: APPEARANCE,URINE SLIGHTLY-CLOUDY; BILIRUBIN,URINE NEGATIVE (NEGATIVE); COLOR,URINE YELLOW; GLUCOSE, URINE NEGATIVE (NEGATIVE); KETONES,URINE NEGATIVE (NEGATIVE); LEUKOCYTE ESTERASE,URINE LARGE (NEGATIVE); NITRITE,URINE NEGATIVE (NEGATIVE); PROTEIN,URINE NEGATIVE (NEGATIVE); URINE SPECIFIC GRAVITY 1.009; UROBILINOGEN,URINE NEGATIVE mg/dL (<2.0)
[2018-07-08] MEDS ORDERED: CEFTRIAXONE INJ 1000 MG VIAL IV ONE (18:00)
--- NOTE | 2018-07-08 18:56 | RADIOLOGY REPORT (SQ) ---
EXAM DESCRIPTION: CT ABD/PELVIS WITH IV ORAL COMPLETED DATE/TIME: 07/08/2018 6:01 pm REASON FOR STUDY: abd pain, hypotension, h/o mesenteric ischemia COMPARISON: 2017 TECHNIQUE: CT scan of the abdomen and pelvis performed using helical scanning technique with dynamic intravenous contrast injection. No oral contrast. Images reviewed with lung, soft tissue, and bone windows. Reconstructed coronal and sagittal MPR images reviewed. Delayed images for evaluation of the urinary system also acquired. All images stored on PACS. All CT scanners at this facility use dose modulation, iterative reconstruction, and/or weight based d osing when appropriate to reduce radiation dose to as low as reasonably achievable (ALARA). [facility]: Dose Right [facility]: CareDose [facility]: Dose Right [facility]: Teradose 4D [facility]: CAN [employer] CONTRAST TYPE AND DOSE: contrast/concentration: Isovue 350.00 mg/ml; Total Contrast Delivered: 50.0 ml; Total Saline Delivered: 67.0 ml RENAL FUNCTION: Creatinine 1.1 RADIATION DOSE: CT Rad equipment meets quality standard of care and radiation dose reduction techniq ues were employed. CTDIvol: 10.0 - 13.2 mGy. DLP: 1237 mGy-cm.. LIMITATIONS: None. FINDINGS: LOWER CHEST: Basilar fibrosis. Cardiomegaly with mild pericardial fluid, chronic. Heavy coronary calcification. LIVER: Normal size. No masses. No dilated ducts. SPLEEN: Normal size. No focal lesions. PANCREAS: No masses. No significant calcifications. No adjacent inflammation or peripancreatic fluid collections. Pancreatic duct not dilated. GALLBLADDER: Mild cholelithiasis. ADRENAL GLANDS: Chronic adrenal nodularity. RIGHT KIDNEY AND URETER: Nonobstructive mild right nephrolithiasis. LEFT KIDNEY AND URETER: Pronounced renal atrophy. AORTA AND VESSELS: Marked atherosclerosis proximally. Infrarenal aortic aneurysm. Allowing for tort uosity, up to 4.5 cm transverse dimension with eccentric left lateral sac thrombus. Relatively stabl e appearance compared the last year. RETROPERITONEUM: No retroperitoneal adenopathy, hemorrhage or masses. BOWEL AND PERITONEAL CAVITY: No abnormal bowel wall thickening or inflammatory process. No suggestio n of mechanical bowel obstruction. Mild distal diverticulosis without active diverticulitis. APPENDIX: Surgically absent. PELVIS: Limiting artifact from right hip instrumentation. No gross mass or fluid. ABDOMINAL WALL: No masses. No hernias. BONES: No significant or acute findings. OTHER: Osteopenia, scoliosis and spondylosis. IMPRESSION: 1. No acute abdominopelvic abnormality appreciated. 2. Extensive atherosclerosis with infrarenal abdominal aortic aneurysm. I measure this as approximately 4.5 cm on today's study. Rela tively stable allowing for differences in technique and tortuosity of the vessel. Imaging follow-up can be accomplished with ultrasound. Six-month follow-up imaging is recommended along with vascular consultation if this has not previously been performed. 3. Other chronic changes as above. TECHNICAL DOCUMENTATION: JOB ID: [id number] Quality ID # [id number]: Final reports with documentation of one or more dose reduction techniques (e.g., Au tomated exposure control, adjustment of the mA and/or kV according to patient size, use of iterative reconstruction technique) 2010 [employer]- All Rights Reserved Reading location - IP/workstation name: [email or web address]
[2018-07-08 19:31] VITALS: BP 165/62
== END 2018-07-08 19:30 | disposition home or self-care (01) ==
LOC: ER 13:18
DX: N30.00 Acute cystitis without hematuria (principal); R10.32 Left lower quadrant pain; I71.4 Abdominal aortic aneurysm, without rupture; R10.9 Unspecified abdominal pain; I10 Essential (primary) hypertension; F17.200 Nicotine dependence, unspecified, uncomplicated; K08.89 Other specified disorders of teeth and supporting structures; I25.10 Atherosclerotic heart disease of native coronary artery without angina pectoris
CPT/HCPCS: 99284; 36415; 87086; 83605; 85025; 80053; 81001; 74177; J0696

== ENCOUNTER 2019-03-23 06:09 | Emergency (ER) | payer MEDICARE, OTHER ==
[2019-03-23 08:29] LABS: ABSOLUTE BASOPHILS # (AUTO) 0.1 10^3/uL (0.0-0.2); ABSOLUTE EOSINOPHILS # (AUTO) 0.2 10^3/uL (0.0-0.6); ABSOLUTE LYMPHOCYTES (AUTO) 1.1 10^3/uL (0.5-4.7); ABSOLUTE MONOCYTES (AUTO) 0.5 10^3/uL (0.1-1.4); ABSOLUTE NEUT (AUTO) 5.1 10^3/uL (1.7-8.2); BASOPHILS % (AUTO) 1.3 % (0-2); EOSINOPHILS % (AUTO) 2.8 % (0-6); HEMATOCRIT 27.9 % (36.0-47.0); HEMOGLOBIN 9.6 g/dL (12.0-15.5); LYMPHOCYTES % (AUTO) 15.6 % (13-45); MEAN CORPUSCULAR HGB CONC 34.4 g/dL (32.0-36.0); MEAN CORPUSCULAR VOLUME 87 fl (80-97); MONOCYTES % (AUTO) 7.1 % (3-13); PLATELET COUNT 231 10^3/uL (150-450); RED CELL DISTRIBUTION WIDTH 14.4 % (11.5-14.0); SEGMENTED NEUTROPHILS % (AUTO) 73.2 % (42-78); TOTAL CELLS COUNTED % (AUTO) 100 %
[2019-03-23 08:43] LABS: ALANINE AMINOTRANSFERASE 31 U/L (9-52); ALBUMIN 3.5 g/dL (3.5-5.0); ALKALINE PHOSPHATASE 76 U/L (38-126); ANION GAP 8 (5-19); ASPARTATE AMINO TRANSFERASE 34 U/L (14-36); BILIRUBIN,DIRECT 0.3 mg/dL (0.0-0.4); BILIRUBIN,TOTAL 0.8 mg/dL (0.2-1.3); BLOOD UREA NITROGEN 21 mg/dL (7-20); CALCIUM 8.9 mg/dL (8.4-10.2); CARBON DIOXIDE 28 mmol/L (22-30); CHLORIDE 98 mmol/L (98-107); CREATINE KINASE 52 U/L (30-135); GLUCOSE 93 mg/dL (75-110); POTASSIUM 3.7 mmol/L (3.6-5.0); SODIUM 134.2 mmol/L (137-145); TOTAL PROTEIN 6.6 g/dL (6.3-8.2)
--- NOTE | 2019-03-23 08:43 | RADIOLOGY REPORT (SQ) ---
EXAM DESCRIPTION: CHEST SINGLE VIEW COMPLETED DATE/TIME: 03/23/2019 8:14 am REASON FOR STUDY: chest pain, dyspnea COMPARISON: 03/03/2019. EXAM PARAMETERS: NUMBER OF VIEWS: One view. TECHNIQUE: Single frontal radiographic view of the chest acquired. RADIATION DOSE: NA LIMITATIONS: None. FINDINGS: LUNGS AND PLEURA: Diffuse interstitial prominence. Bilateral pleural effusions. MEDIASTINUM AND HILAR STRUCTURES: No masses. Contour normal. HEART AND VASCULAR STRUCTURES: Mild cardiomegaly. BONES: No acute findings. HARDWARE: Multi lumen catheter on the left side with the tip at the level of the superior vena cava. No pneumothorax. OTHER: No other significant finding. IMPRESSION: INTERVAL CATHETER PLACEMENT. NO PNEUMOTHORAX. OTHERWISE NO SIGNIFICANT CHANGE. TECHNICAL DOCUMENTATION: JOB ID: [id number] [employer]- All Rights Reserved Reading location - IP/workstation name: [email or web address]
[2019-03-23 08:54] LABS: CREATINE KINASE MB 1.14 ng/mL (<4.55); TROPONIN I 0.013 ng/mL
--- NOTE | 2019-03-23 09:02 | EKG REPORT ---
SEVERITY:- ABNORMAL ECG - SINUS RHYTHM LEFT AXIS DEVIATION LVH WITH SECONDARY REPOLARIZATION ABNORMALITY ANTERIOR Q WAVES, OLD ANTERIOR DC : Confirmed by: Jason Mcghee MD 23-Mar-2019 09:02:12
--- NOTE | 2019-03-23 09:55 | ER Document Report ---
ED General - General Chief Complaint: Shortness Of Breath Stated Complaint: SHORTNESS OF BREATH Time Seen by Provider: 03/23/19 07:15 Primary Care Provider: ASHLEY YUSUF JR, MD [Primary Care Provider] - Follow up as needed TRAVEL OUTSIDE OF THE [place] IN LAST 30 DAYS: No - HPI Notes: Patient is a 78-year-old female presents to the emergency department for evaluation of chest pain and difficulty breathing. She states all her symptoms started at about 10 PM. She was getting ready for bed. She states she has a shooting pain in the center of her chest that comes and goes. Nothing seems to make it better or worse. She states overall her difficulty breathing has improved since onset at 10 PM last night. I asked her if she has any history of anything similar. She states to me she thinks it may be anxiety. She states she is feeling overwhelmed. She had dialysis yesterday as scheduled. She states that she is just recently been started on dialysis. She was discharged from the hospital at [facility]. She states while she was in the hospital they were taking at times up to 6 pounds of fluid off of her. She states they only took about a pound off of her by day and she became concerned. She denies any associated nausea, diaphoresis, near syncope. She has not yet taken her blood pressure medications this morning, she did not have any food. - Related Data Allergies/Adverse Reactions: No Known Allergies Allergy (Verified 07/08/18 13:24) Past Medical History - General Information source: Patient, Relative - Social History Smoking Status: Current Some Day Smoker Chew tobacco use (# tins/day): No Frequency of alcohol use: None Drug Abuse: None Family History: Reviewed & Not Pertinent Patient has suicidal ideation: No Patient has homicidal ideation: No - Past Medical History Cardiac Medical History: Reports: Hx Congestive Heart Failure, Hx Coronary Artery Disease, Hx Hypercholesterolemia, Hx Hypertension Denies: Hx Heart Attack Pulmonary Medical History: Denies: Hx Asthma, Hx Bronchitis, Hx COPD, Hx Pneumonia Neurological Medical History: Denies: Hx Seizures Renal/ Medical History: Reports: Hx End Stage Renal Disease. Denies: Hx Peritoneal Dialysis Musculoskeletal Medical History: Denies Hx Arthritis Past Surgical History: Reports: Hx Adenoidectomy, Hx Appendectomy, Hx Orthopedic Surgery - right hip replacement, Hx Thyroid Surgery - removed. Denies: Hx Cholecystectomy, Hx Hysterectomy - Immunizations Hx Diphtheria, Pertussis, Tetanus Vaccination: Yes Hx Pneumococcal Vaccination: 11/05/12 Review of Systems - Review of Systems Constitutional: No symptoms reported EENT: No symptoms reported Cardiovascular: See HPI Respiratory: See HPI Gastrointestinal: No symptoms reported. denies: Black stools, Rectal bleeding Genitourinary: No symptoms reported Musculoskeletal: No symptoms reported Skin: No symptoms reported Neurological/Psychological: No symptoms reported Physical Exam - Vital signs Vitals: Temp Pulse Resp BP Pulse Ox 97.7 F 69 23 H 154/67 H 99 03/23/19 06:27 03/23/19 06:27 03/23/19 06:27 03/23/19 06:27 03/23/19 06:27 - Notes Notes: Vital signs reviewed, please refer to chart. Head is normocephalic, atraumatic. Pupils equal round, reactive to light. Neck is supple without meningismus. Dialysis catheter in left upper chest without surrounding erythema or tenderness. She does have substernal tenderness to palpation, coinciding with her area of pain, but it does not reproduced her exact pain. Heart is regular rate and rhythm. Lungs are clear to auscultation bilaterally. Abdomen is soft, nontender, normoactive bowel sounds throughout. Extremities without cyanosis, clubbing. Posterior calves are nontender. Peripheral pulses are equal. Skin is warm and dry. Patient is awake, alert, neurological exam is nonfocal. Course - Re-evaluation Re-evalutation: 03/23/19 09:53 Patient presents to the emergency department for evaluation of chest pain and difficulty breathing. She was placed on a potline monitor, laboratory investigations were obtained. She had EKG which was not significantly changed. Imaging failed to reveal any signs of pulmonary edema. Laboratory investigations were largely unremarkable as well. Patient's blood pressure remained moderately elevated here, currently blood pressure is 164/76. This was discussed with the patient, and I recommend that she go home and take her blood pressure medications immediately. At this time, she has no signs of pneumonia, ACS, pneumothorax, or other significant life-threatening condition. She is breathing 22 times a minute without any sort of apparent distress, no hypoxia, she is 96% on room air. I explained to the patient that she needs to follow-up with her primary care physician. She also needs to follow-up with nephrology. She has a significant amount of anxiety surrounding the fact that she does not know who her tight rope walker is. I strongly encouraged her to reach out while at dialysis tomorrow. She states that there is a care meeting tomorrow to further discuss her care. I strongly encouraged her to ask as many questions as needed. She voiced understanding to this. She is to return to the ED with worsening or new concerning - Vital Signs Vital signs: Temp Pulse Resp BP Pulse Ox 97.7 F 69 17 162/73 H 95 03/23/19 06:27 03/23/19 06:27 03/23/19 07:01 03/23/19 07:00 03/23/19 07:01 - Laboratory Result Diagrams: 03/23/19 08:09 03/23/19 08:09 Laboratory results interpreted by me: 03/23/19 03/23/19 08:09 08:09 RBC 3.20 L Hgb 9.6 L Hct 27.9 L RDW 14.4 H Sodium 134.2 L BUN 21 H Creatinine 1.31 H Est GFR ( Amer) 48 L Est GFR (Non-Af Amer) 39 L - Diagnostic Test Radiology reviewed: Reports reviewed Radiology results interpreted by me: 03/23/19 09:53 Chest X-Ray 03/23/19 07:44 IMPRESSION: INTERVAL CATHETER PLACEMENT. NO PNEUMOTHORAX. OTHERWISE NO SIGNIFICANT CHANGE. - EKG Interpretation by Me Additional EKG results interpreted by me: 03/23/19 09:53 Normal sinus mechanism with a rate of 73 bpm. Left axis deviation. LVH with strain pattern versus lateral ischemia. No significant change when compared to prior study on March 03, 2019 Discharge - Discharge Clinical Impression: Dyspnea Qualifiers: Dyspnea type: unspecified Qualified Code(s): R06.00 - Dyspnea, unspecified Chest pain Qualifiers: Chest pain type: unspecified Qualified Code(s): R07.9 - Chest pain, unspecified Condition: Stable Disposition: HOME, SELF-CARE Instructions: Dyspnea, Nonspecific ([facility]), Chest Pain of Unclear Cause ([facility]) Additional Instructions: Go to dialysis tomorrow as scheduled. Follow-up with your primary care physician this week. If you develop worsening or new concerning symptoms of any sort, return immediately to the emergency department for reevaluation. Referrals: ASHLEY YUSUF JR, MD [Primary Care Provider] - Follow up as needed
[2019-03-23 10:08] VITALS: BP 163/70
== END 2019-03-23 10:08 | disposition home or self-care (01) ==
LOC: ER 06:09
DX: R07.9 Chest pain, unspecified (principal); R06.02 Shortness of breath; I25.10 Atherosclerotic heart disease of native coronary artery without angina pectoris; I12.0 Hypertensive chronic kidney disease with stage 5 chronic kidney disease or end stage renal disease; N18.6 End stage renal disease; Z99.2 Dependence on renal dialysis; Z79.899 Other long term (current) drug therapy
CPT/HCPCS: 36415; 71045; 80053; 82550; 82553; 84484; 85025; 93005; 93010; 99284

== ENCOUNTER 2019-03-30 22:07 | Inpatient (IN) | payer MEDICARE, OTHER ==
[2019-03-30 22:42] LABS: VENOUS BLOOD HCO3 25.8 mmol/L (20-32); VENOUS BLOOD PCO2 37.5 mmHg (35-63); VENOUS BLOOD PH 7.46 (7.30-7.42)
[2019-03-30 22:43] LABS: ABSOLUTE BASOPHILS # (AUTO) 0.1 10^3/uL (0.0-0.2); ABSOLUTE EOSINOPHILS # (AUTO) 0.3 10^3/uL (0.0-0.6); ABSOLUTE LYMPHOCYTES (AUTO) 1.9 10^3/uL (0.5-4.7); ABSOLUTE MONOCYTES (AUTO) 0.6 10^3/uL (0.1-1.4); ABSOLUTE NEUT (AUTO) 5.2 10^3/uL (1.7-8.2); BASOPHILS % (AUTO) 1.2 % (0-2); EOSINOPHILS % (AUTO) 3.6 % (0-6); HEMOGLOBIN 9.6 g/dL (12.0-15.5); LYMPHOCYTES % (AUTO) 23.2 % (13-45); MEAN CORPUSCULAR HGB CONC 34.1 g/dL (32.0-36.0); MEAN CORPUSCULAR VOLUME 88 fl (80-97); MONOCYTES % (AUTO) 7.1 % (3-13); PLATELET COUNT 307 10^3/uL (150-450); RED BLOOD COUNT 3.19 10^6/uL (3.72-5.28); RED CELL DISTRIBUTION WIDTH 14.8 % (11.5-14.0); SEGMENTED NEUTROPHILS % (AUTO) 64.9 % (42-78); TOTAL CELLS COUNTED % (AUTO) 100 %
[2019-03-30 23:00] LABS: ALANINE AMINOTRANSFERASE 28 U/L (9-52); ALBUMIN 3.6 g/dL (3.5-5.0); ALKALINE PHOSPHATASE 84 U/L (38-126); ANION GAP 12 (5-19); ASPARTATE AMINO TRANSFERASE 28 U/L (14-36); BILIRUBIN,DIRECT 0.2 mg/dL (0.0-0.4); BILIRUBIN,TOTAL 0.7 mg/dL (0.2-1.3); BLOOD UREA NITROGEN 25 mg/dL (7-20); CALCIUM 8.8 mg/dL (8.4-10.2); CARBON DIOXIDE 25 mmol/L (22-30); CHLORIDE 96 mmol/L (98-107); GLUCOSE 100 mg/dL (75-110); POTASSIUM 4.5 mmol/L (3.6-5.0); SODIUM 132.8 mmol/L (137-145); TOTAL PROTEIN 6.5 g/dL (6.3-8.2)
--- NOTE | 2019-03-30 23:12 | ER Document Report ---
ED General - General Stated Complaint: TROUBLE BREATHING Time Seen by Provider: 03/30/19 22:37 Cannot obtain history due to: Unstable vital signs Notes: Patient is a 78-year-old female with a past medical history of CHF, chronic kidney disease, presents by some respiratory distress. Patient was recently discharged from [facility] where she was on dialysis secondary to contrast-induced nephropathy. She states that her last session of dialysis was on Sunday, 4 days ago. States that she was released on dialysis as her kidney functions had effectively normalized. She states that for the past 3 or 4 days she has been gaining a pound each day and has noticed some increasing shortness of breath over the last 24 hours which became much worse in the last 2 to 3 hours prior to presentation. She states that her shortness of breath is currently somewhat improved after being on CPAP by EMS but still regards it is being a severe, pervasive, shortness of breath. Nothing seems to improve or worsen her symptoms. Denies associated chest pain. States this feels very similar to when she has had pulmonary edema in the past. She is not currently taking any diuretics as an outpatient as they were stopped by Dr. Díaz her hardware manager. TRAVEL OUTSIDE OF THE [place] IN LAST 30 DAYS: No - Related Data Allergies/Adverse Reactions: No Known Allergies Allergy (Verified 07/08/18 13:24) Past Medical History - General Information source: Patient, Emergency Med Personnel Cannot obtain history due to: Unstable vital signs - Social History Smoking Status: Former Smoker Frequency of alcohol use: None Drug Abuse: None Lives with: Spouse/Significant other Family History: Reviewed & Not Pertinent - Past Medical History Cardiac Medical History: Reports: Hx Congestive Heart Failure, Hx Coronary Artery Disease, Hx Hypercholesterolemia, Hx Hypertension Denies: Hx Heart Attack Pulmonary Medical History: Denies: Hx Asthma, Hx Bronchitis, Hx COPD, Hx Pneumonia Neurological Medical History: Denies: Hx Seizures Renal/ Medical History: Reports: Hx End Stage Renal Disease. Denies: Hx Peritoneal Dialysis Musculoskeletal Medical History: Denies Hx Arthritis Past Surgical History: Reports: Hx Adenoidectomy, Hx Appendectomy, Hx Orthopedic Surgery - right hip replacement, Hx Thyroid Surgery - removed. Denies: Hx Cholecystectomy, Hx Hysterectomy - Immunizations Hx Diphtheria, Pertussis, Tetanus Vaccination: Yes Hx Pneumococcal Vaccination: 11/05/12 Review of Systems - Review of Systems Notes: Constitutional: Negative for fever. HENT: Negative for sore throat. Eyes: Negative for visual changes. Cardiovascular: Negative for chest pain. Respiratory: Positive for shortness of breath. Gastrointestinal: Negative for abdominal pain, vomiting or diarrhea. Genitourinary: Negative for dysuria. Musculoskeletal: Negative for back pain. Skin: Negative for rash. Neurological: Negative for headaches, weakness or numbness. 10 point ROS negative except as marked above and in HPI. Physical Exam - Vital signs Vitals: Pulse Resp BP Pulse Ox 72 22 H 169/74 H 100 03/30/19 22:08 03/30/19 22:08 03/30/19 22:08 03/30/19 22:08 Interpretation: Hypertensive, Hypoxic, Tachypneic Notes: PHYSICAL EXAMINATION: GENERAL: Ill in appearance, moderate respiratory distress, unable to speak in full sentences secondary to her distress. HEAD: Atraumatic, normocephalic. EYES: Pupils equal round and reactive to light, extraocular movements intact, sclera anicteric, conjunctiva are normal. ENT: nares patent, oropharynx clear without exudates. Moderately dry mucous membranes. NECK: Normal range of motion, supple without lymphadenopathy LUNGS: Moderate respiratory distress, tachypneic into the upper 30s. Rales throughout. Acceptable air movement throughout. Intercostal retractions present. HEART: Regular rate and rhythm without murmurs ABDOMEN: Soft, nontender, normoactive bowel sounds. No guarding, no rebound. No masses appreciated. EXTREMITIES: Normal range of motion, 2+ pitting edema in the bilateral lower extremities that is equal and symmetric NEUROLOGICAL: No focal neurological deficits. Moves all extremities spontaneously and on command. PSYCH: Anxious but appropriate to situation SKIN: Warm, Dry, normal turgor, no rashes or lesions noted. Course - Re-evaluation Re-evalutation: 03/30/19 22:41 Patient presents in moderate respiratory distress, labored in her breathing saturating into the upper 80s on room air and does not normally have an oxygen to last dialysis was Sunday and patient was apparently discontinued off dialysis thereafter. Her presentation appears to be most consistent with likely pulmonary edema in the setting of volume overload as she has bilateral lower extremity edema and rales throughout. I was immediate at this patient's bedside upon her arrival taking report from EMS and patient did arrive on BiPAP. Patient was briefly taken off BiPAP so she could provide appropriate history and became increasingly labored during that time. BiPAP was subsequently placed. Labs, chest x-ray pending. Patient is in guarded condition will be reassessed at regular intervals. 03/30/19 23:46 Patient has been reassessed on multiple occasions since initial assessment. Continues to clinically improve on BiPAP. Chest x-ray does demonstrate findings consistent with pulmonary edema although thankfully patient's renal functions are effectively normal. Troponin pending. Lasix will be administered IV. Will continue to reassess her regular reveals. Patient will require hospitalization. Will continue to reassess. 03/31/19 01:31 Patient has had dramatic improvement in her work of breathing, able to be weaned off BiPAP and is tolerating nasal cannula at 3 L saturating 95 to 96%. Troponin normal. Discussed with Dr. Hopper who is accepted patient for admission. - Vital Signs Vital signs: Temp Pulse Resp BP Pulse Ox 98.3 F 72 19 167/62 H 98 03/31/19 03:23 03/30/19 22:08 03/31/19 02:01 03/31/19 02:01 03/31/19 02:01 - Laboratory Result Diagrams: 03/30/19 22:25 03/30/19 22:25 Laboratory results interpreted by me: 03/30/19 03/30/19 03/30/19 22:25 22:25 22:25 RBC 3.19 L Hgb 9.6 L Hct 28.0 L RDW 14.8 H VBG pH Sodium 132.8 L Chloride 96 L BUN 25 H Creatinine 1.29 H Est GFR ( Amer) 48 L Est GFR (Non-Af Amer) 40 L NT-Pro-B Natriuret Pep 4850 H 03/30/19 22:25 RBC Hgb Hct RDW VBG pH 7.46 H Sodium Chloride BUN Creatinine Est GFR ( Amer) Est GFR (Non-Af Amer) NT-Pro-B Natriuret Pep - Diagnostic Test Radiology reviewed: Image reviewed, Reports reviewed Radiology results interpreted by me: 03/31/19 01:31 Chest x-ray: Bilateral pulmonary edema - EKG Interpretation by Me Additional EKG results interpreted by me: 03/31/19 01:32 Sinus rhythm, rate 73, LVH. No ST elevations or depressions. QTC is 454. Critical Care Note - Critical Care Note Total time excluding time spent on procedures (mins): 36 Comments: Critical care time spent obtaining history from patient or surrogate, discussions with consultants, development of treatment plan with patient or surrogate, evaluation of patient's response to treatment, examination of patient, ordering and performing treatments and interventions, ordering and review of laboratory studies, re-evaluation of patient's condition, ordering and review of radiographic studies and review of old charts Discharge - Discharge Clinical Impression: Respiratory distress, Acute respiratory failure with hypoxia Pulmonary edema Qualifiers: Chronicity: acute Qualified Code(s): J81.0 - Acute pulmonary edema CHF exacerbation Qualifiers: Heart failure type: unspecified Qualified Code(s): I50.9 - Heart failure, unspecified Condition: Fair Disposition: ADMITTED OBSERVATION Admitting Provider: Ward (Hospitalist) Unit Admitted: Telemetry
--- NOTE | 2019-03-30 23:25 | RADIOLOGY REPORT (SQ) ---
EXAM DESCRIPTION: XR CHEST 1 VIEW COMPLETED DATE/TME: 03/30/2019 22:37 CLINICAL HISTORY: 78 years, Female, sob COMPARISON: Multiple priors, most recent from 03/23/2019 NUMBER OF VIEWS: One TECHNIQUE: Single frontal view of the chest was obtained portably LIMITATIONS: None. FINDINGS: Left IJ approach multilumen catheter tip is located in the SVC. Cardiac and mediastinal contours are stable. Multifocal bilateral airspace disease persists, along with superimposed small bilateral pleural effusions/bibasilar atelectasis. However, this appears somewhat increased from the previous exam. No pneumothorax. IMPRESSION: Interval increase in multifocal bilateral airspace disease with superimposed small bilateral pleural effusions/bibasilar atelectasis. Pulmonary edema is a primary consideration. Multifocal pneumonia is considered less likely. copyright 2010 [employer]- All Rights Reserved
[2019-03-30] MEDS ORDERED: FUROSEMIDE INJ/PF 20 MG/2 ML SDV IV ONE (23:45)
--- NOTE | 2019-03-31 00:04 | EKG REPORT ---
SEVERITY:- ABNORMAL ECG - SINUS RHYTHM LEFT AXIS DEVIATION LVH WITH SECONDARY REPOLARIZATION ABNORMALITY ANTERIOR Q WAVES, POSSIBLY DUE TO LVH : Confirmed by: Donet Bennett 31-Mar-2019 00:03:24
[2019-03-31] MEDS ORDERED: MAG HYDROX/AL HYDROX/SIMETH SUSP 30 ML UDCUP PO PRN (02:03)
[2019-03-31] MEDS ORDERED: AMLODIPINE BESYLATE 5 MG TABLET PO ONE (05:57)
[2019-03-31 06:16] LABS: ABSOLUTE RETICS # 0.073 10^6/uL (0.028-0.122); RETICULOCYTE COUNT (AUTO) 2.47 % (0.66-2.85)
[2019-03-31] MEDS: ATORVASTATIN CALCIUM 20 MG TABLET PO SCH ×2 (06:19→21:09)
[2019-03-31] MEDS: ASPIRIN 81 MG TABLET, CHEWABLE PO SCH ×2 (06:19→09:10)
[2019-03-31] MEDS: NITROGLYCERIN 5 MG (0.2 MG/HR) PATCH.TD24 TD SCH ×2 (06:20→09:10)
[2019-03-31] MEDS: METOPROLOL SUCCINATE 50 MG TAB.SR.24H PO SCH ×3 (06:20→19:08)
[2019-03-31] MEDS: HEPARIN SOD (PORCINE) 5,000 UNIT/ML 1 ML SYRINGE SUBCUT SCH ×3 (06:21→14:36)
[2019-03-31] MEDS ORDERED: ALBUTEROL SULFATE 0.083% NEB 2.5 MG/3 ML AMPUL NEB PRN (06:47)
--- NOTE | 2019-03-31 06:47 | PDOC H&P ---
History of Present Illness Admission Date/PCP: 03/31/19 01:53 ASHLEY YUSUF JR, MD Patient complains of: Shortness of breath History of Present Illness: DIO JARQUIN I is a 78 year old female with a past medical history of hypertension, congestive heart failure, tobacco Dependence and recent acute renal failure. Details of her acute renal failure are unclear but she was treated at [facility] and has a left sided chest wall catheter in place as she required less than 2 weeks of hemodialysis and was discontinued 4 days ago. Today she presents with 24 hours of shortness of breath and perceived weight gain. In the emergency room she is found to have uncontrolled systolic blood pressure in the 170s, a hemoglobin of 9.6, GFR of 48, BNP of 4800. She receives IV Lasix, BiPAP as ordered but she refuses and is referred to the hospitalist for admission. She denies chest pain nausea vomiting diaphoresis. She admits to persistent tobacco dependence and appears anxious. Past Medical History Cardiac Medical History: Reports: Congestive Heart Failure, Coronary Artery Disease, Hyperlipidema, Hypertension Denies: Myocardial Infarction Pulmonary Medical History: Denies: Asthma, Bronchitis, Chronic Obstructive Pulmonary Disease (COPD), Pneumonia Neurological Medical History: Denies: Seizures Renal/ Medical History: Reports: Chronic Kidney Disease Malignancy Medical History: Reports: None GI Medical History: Reports: None Musculoskeltal Medical History: Denies: Arthritis Psychiatric Medical History: Reports: Tobacco Dependency Hematology: Denies: Anemia Past Surgical History Past Surgical History: Reports: Adenoidectomy, Appendectomy, Orthopedic Surgery - right hip replacement Denies: Cholecystectomy, Hysterectomy Social History Information Source: Patient Lives with: Spouse/Significant other Smoking Status: Current Every Day Smoker Frequency of Alcohol Use: None Drugs: None - Advance Directive Resuscitation Status: Full Code Family History Family History: Hypertension Parental Family History Reviewed: Yes Children Family History Reviewed: Yes Sibling(s) Family History Reviewed.: Yes Medication/Allergy Home Medications: Aspirin [Aspirin 81 mg Chewable Tablet] 81 mg PO DAILY 08/10/15 Atorvastatin Calcium [Lipitor] 20 mg PO DAILY 08/10/15 Calcium Carbonate/Vitamin D3 [Oyster Shell Calcium + D Tab] 2 tab PO DAILY 08/10/15 Esomeprazole Magnesium [Nexium] 20 mg PO DAILY 08/10/15 Levothyroxine Sodium [Synthroid] 137 mcg PO DAILY 08/10/15 Losartan/Hydrochlorothiazide [Hyzaar 100-25 Tablet] 1 tab PO DAILY 08/10/15 Metoprolol Succinate [Toprol Xl 50 mg Tab.sr] 50 mg PO DAILY 08/10/15 Multivitamin [Daily Multiple Vitamin] 1 tab PO DAILY 08/10/15 Polyethylene Glycol 3350 [Miralax] 1 packet PO DAILY 08/10/15 Methocarbamol [Robaxin 500 mg Tablet] 500 mg PO QID #40 tablet 11/16/16 Cephalexin Monohydrate [Keflex 500 mg Capsule] 500 mg PO Q6H 7 Days #28 capsule 07/08/18 Allergies/Adverse Reactions: No Known Allergies Allergy (Verified 07/08/18 13:24) Review of Systems Constitutional: PRESENT: as per HPI. ABSENT: chills, fever(s), headache(s), weight gain, weight loss Eyes: ABSENT: visual disturbances Ears: ABSENT: hearing changes Cardiovascular: ABSENT: chest pain, dyspnea on exertion, edema, orthropnea, palpitations Respiratory: PRESENT: as per HPI, dyspnea. ABSENT: cough, hemoptysis, sputum Gastrointestinal: ABSENT: abdominal pain, constipation, diarrhea, hematemesis, hematochezia, nausea, vomiting Genitourinary: ABSENT: dysuria, hematuria Musculoskeletal: ABSENT: joint swelling Integumentary: ABSENT: rash, wounds Neurological: ABSENT: abnormal gait, abnormal speech, confusion, dizziness, focal weakness, syncope Psychiatric: PRESENT: as per HPI, anxiety. ABSENT: depression, homidical ideation, suicidal ideation Endocrine: ABSENT: cold intolerance, heat intolerance, polydipsia, polyuria Hematologic/Lymphatic: ABSENT: easy bleeding, easy bruising Physical Exam Vital Signs: Temp Pulse Resp BP Pulse Ox 98.3 F 72 19 167/62 H 98 03/31/19 03:23 03/30/19 22:08 03/31/19 02:01 03/31/19 02:01 03/31/19 02:01 Intake & Output 03/29/19 03/30/19 03/31/19 11:59 11:59 11:59 Output Total 1100 Balance -1100 Weight 71.8 kg General appearance: PRESENT: cooperative, mild distress, thin. ABSENT: disheveled Head exam: PRESENT: atraumatic, normocephalic Eye exam: PRESENT: conjunctiva pink, EOMI, PERRLA. ABSENT: scleral icterus Ear exam: PRESENT: normal external ear exam Mouth exam: PRESENT: moist, tongue midline Neck exam: ABSENT: carotid bruit, JVD, lymphadenopathy, thyromegaly Respiratory exam: PRESENT: accessory muscle use, crackles, prolonged expiratory phas, other - Shiley catheter without erythema or exudate. ABSENT: chest wall tenderness, rales, rhonchi, wheezes Cardiovascular exam: PRESENT: RRR. ABSENT: diastolic murmur, rubs, systolic murmur Pulses: PRESENT: normal dorsalis pedis pul Vascular exam: PRESENT: normal capillary refill GI/Abdominal exam: PRESENT: normal bowel sounds, soft. ABSENT: distended, guarding, mass, organolmegaly, rebound, tenderness Rectal exam: PRESENT: deferred Extremities exam: PRESENT: full ROM, +1 edema - Left leg chronically edematous, no Homans sign or pain behind the knee, multiple previous studies negative for DVT. ABSENT: calf tenderness, clubbing, pedal edema Neurological exam: PRESENT: alert, awake, oriented to person, oriented to place, oriented to time, oriented to situation, CN II-XII grossly intact. ABSENT: motor sensory deficit Psychiatric exam: PRESENT: anxious. ABSENT: appropriate affect, depressed, normal mood Skin exam: PRESENT: dry, intact, warm. ABSENT: cyanosis, rash Results Laboratory Results: 03/30/19 22:25 03/30/19 22:25 03/30/19 03/30/19 03/30/19 22:25 22:25 22:25 WBC 8.0 RBC 3.19 L Hgb 9.6 L Hct 28.0 L MCV 88 MCH 30.0 MCHC 34.1 RDW 14.8 H Plt Count 307 Seg Neutrophils % 64.9 Lymphocytes % 23.2 Monocytes % 7.1 Eosinophils % 3.6 Basophils % 1.2 Absolute Neutrophils 5.2 Absolute Lymphocytes 1.9 Absolute Monocytes 0.6 Absolute Eosinophils 0.3 Absolute Basophils 0.1 Retic Count (auto) Absolute Retic VBG pH 7.46 H VBG pCO2 37.5 VBG HCO3 25.8 VBG Base Excess 2.0 Sodium 132.8 L Potassium 4.5 Chloride 96 L Carbon Dioxide 25 Anion Gap 12 BUN 25 H Creatinine 1.29 H Est GFR ( Amer) 48 L Est GFR (Non-Af Amer) 40 L Glucose 100 Calcium 8.8 Total Bilirubin 0.7 AST 28 ALT 28 Alkaline Phosphatase 84 Total Protein 6.5 Albumin 3.6 TSH 03/30/19 03/31/19 22:25 04:49 WBC RBC Hgb Hct MCV MCH MCHC RDW Plt Count Seg Neutrophils % Lymphocytes % Monocytes % Eosinophils % Basophils % Absolute Neutrophils Absolute Lymphocytes Absolute Monocytes Absolute Eosinophils Absolute Basophils Retic Count (auto) 2.47 Absolute Retic 0.073 VBG pH VBG pCO2 VBG HCO3 VBG Base Excess Sodium Potassium Chloride Carbon Dioxide Anion Gap BUN Creatinine Est GFR ( Amer) Est GFR (Non-Af Amer) Glucose Calcium Total Bilirubin AST ALT Alkaline Phosphatase Total Protein Albumin TSH 2.74 03/30/19 03/30/19 03/31/19 22:25 22:25 04:49 Creatine Kinase 48 Troponin I < 0.012 NT-Pro-B Natriuret Pep 4850 H 03/31/19 04:49 Creatine Kinase Troponin I < 0.012 NT-Pro-B Natriuret Pep Impressions: Chest X-Ray 03/30/19 22:37 IMPRESSION: Interval increase in multifocal bilateral airspace disease with superimposed small bilateral pleural effusions/bibasilar atelectasis. Pulmonary edema is a primary consideration. Multifocal pneumonia is considered less likely. copyright 2010 [employer]- All Rights Reserved Assessment and Plan - Diagnosis (1) Anemia Is this a current diagnosis for this admission?: Yes Plan: Contributing to presenting shortness of breath, follow-up anemia work-up and CBC (2) Hypertensive urgency Is this a current diagnosis for this admission?: Yes Plan: Transdermal nitrate, loop diuretic, trial Norvasc (3) Anxiety Is this a current diagnosis for this admission?: Yes Plan: Consider trazodone trial (4) Acute respiratory failure with hypoxia Is this a current diagnosis for this admission?: Yes Plan: Multifactorial secondary to uncontrolled hypertension, high-output heart failure, likely diastolic heart failure and anemia. Optimize blood pressure, evaluate anemia, supplemental oxygen, tobacco cessation counseling follow-up PFTs (5) CHF exacerbation Qualifiers: Heart failure type: unspecified Qualified Code(s): I50.9 - Heart failure, unspecified Is this a current diagnosis for this admission?: Yes Plan: Optimize anemia, blood pressure and volume status. (6) COPD (chronic obstructive pulmonary disease) Is this a current diagnosis for this admission?: Yes Plan: Suspected COPD given long-term tobacco and oxygen requirement. Follow-up PFTs - Time Time Spent with patient: 35 or more minutes - Inpatient Certification Medical Necessity: Need Close Monitoring Due to Risk of Patient Decompensation
[2019-03-31 07:07] LABS: IRON(TIBC) 31.3 ug/dL (37-170)
[2019-03-31 08:21] LABS: FOLATE > 20.00 ng/mL (>2.76)
[2019-03-31] MEDS: POTASSIUM CHLORIDE 10 MEQ CAPSULE.ER PO SCH ×2 (09:10→21:08)
[2019-03-31] MEDS: POLYETHYLENE GLYCOL 3350 POWDER 17 GM/1 PACKET PO SCH (09:11)
[2019-03-31] MEDS: FUROSEMIDE INJ/PF 20 MG/2 ML SDV IV SCH ×2 (09:11→21:09)
[2019-03-31] MEDS ORDERED: (PENDING PHARMACY ID) (Levothyroxine Sodium [Synthroid] 137 MCG) PO SCH (10:00)
[2019-03-31] MEDS ORDERED: AMLODIPINE BESYLATE 5 MG TABLET PO SCH (10:00)
--- NOTE | 2019-03-31 11:49 | Progress Note ---
Provider Note Provider Note: DIO JARQUIN I is a 78 year old female with a past medical history of hypertension, congestive heart failure, tobacco Dependence and recent acute renal failure presented with chief complaint of shortness of breath. The cause for acute renal failure is not clear. Patient was treated with hemodialysis at [facility] for about 2 weeks. Dialysis was discontinued 4 days ago but still patient has the dialysis catheter on the left side of her chest. This morning I seen patient propped up in bed. She is awake alert oriented. And she reports this that her breathing is much better than yesterday. Accept this patient and I will be her primary attending.
[2019-03-31] MEDS ORDERED: (PENDING PHARMACY ID) (Lisinopril [Prinivil] 20 MG) PO SCH (14:45)
[2019-03-31] MEDS ORDERED: (PENDING PHARMACY ID) (Nifedipine [Nifedipine Er] 60 MG) PO SCH (14:45)
[2019-03-31] MEDS: FLUTICASONE NASAL SPRAY 50 MCG/SPRY 120 SPRAY/16 GM NASL SCH (19:02)
[2019-03-31] MEDS: ASPIRIN 81 MG TABLET, ENT COATED PO SCH (19:03)
[2019-03-31] MEDS: ALPRAZOLAM 0.5 MG TABLET PO SCH (19:05)
[2019-03-31] MEDS: LISINOPRIL 10 MG TABLET PO SCH (19:05)
[2019-03-31] MEDS: CLONIDINE HCL 0.1 MG TABLET PO SCH (19:05)
[2019-03-31] MEDS: CETIRIZINE 10 MG TABLET PO SCH (19:07)
[2019-03-31] MEDS: APIXABAN 5 MG TABLET PO SCH (19:08)
[2019-03-31] MEDS: MULTIVITAMIN TABLET PO SCH (19:08)
[2019-03-31] MEDS: NIFEDIPINE 30 MG TAB.ER.24 PO SCH (19:08)
[2019-03-31] MEDS: ATORVASTATIN CALCIUM 80 MG TABLET PO SCH (19:09)
[2019-03-31] MEDS: PYRIDOXINE HCL 50 MG TABLET PO SCH (19:09)
[2019-03-31] MEDS: ISOSORBIDE DINITRATE 20 MG TABLET PO SCH (19:09)
[2019-04-01] MEDS ORDERED: LEVOTHYROXINE SODIUM 0.025 MG TABLET PO SCH (06:00)
[2019-04-01] MEDS ORDERED: LEVOTHYROXINE SODIUM 0.112 MG TABLET PO SCH ×2 (06:00)
[2019-04-01 06:56] LABS: ANION GAP 9 (5-19); BLOOD UREA NITROGEN 24 mg/dL (7-20); CALCIUM 8.4 mg/dL (8.4-10.2); CARBON DIOXIDE 28 mmol/L (22-30); CHLORIDE 100 mmol/L (98-107); GLUCOSE 76 mg/dL (75-110); POTASSIUM 5.2 mmol/L (3.6-5.0); SODIUM 136.6 mmol/L (137-145)
[2019-04-01] MEDS: LEVOTHYROXINE SODIUM 0.025 MG TABLET PO SCH (09:24)
[2019-04-01] MEDS ORDERED: AMLODIPINE BESYLATE 5 MG TABLET PO SCH (10:00)
[2019-04-01] MEDS ORDERED: (PENDING PHARMACY ID) (Levothyroxine Sodium [Levothyroxine Sodium] 125 MCG) PO SCH (10:00)
[2019-04-01] MEDS: NIFEDIPINE 30 MG TAB.ER.24 PO SCH (11:18)
[2019-04-01] MEDS: LISINOPRIL 10 MG TABLET PO SCH (11:18)
[2019-04-01] MEDS: FLUTICASONE NASAL SPRAY 50 MCG/SPRY 120 SPRAY/16 GM NASL SCH (11:19)
[2019-04-01] MEDS: POTASSIUM CHLORIDE 10 MEQ CAPSULE.ER PO SCH (11:19)
[2019-04-01] MEDS: APIXABAN 5 MG TABLET PO SCH ×2 (11:20→18:12)
[2019-04-01] MEDS: MULTIVITAMIN TABLET PO SCH (11:20)
[2019-04-01] MEDS: CETIRIZINE 10 MG TABLET PO SCH (11:20)
[2019-04-01] MEDS: ASPIRIN 81 MG TABLET, ENT COATED PO SCH (11:22)
[2019-04-01] MEDS: METOPROLOL SUCCINATE 50 MG TAB.SR.24H PO SCH (11:22)
[2019-04-01] MEDS: ALPRAZOLAM 0.5 MG TABLET PO SCH ×2 (11:22→21:20)
[2019-04-01] MEDS: NITROGLYCERIN 5 MG (0.2 MG/HR) PATCH.TD24 TD SCH (11:23)
[2019-04-01] MEDS: CLONIDINE HCL 0.1 MG TABLET PO SCH ×2 (11:23→11:28)
[2019-04-01] MEDS: ISOSORBIDE DINITRATE 20 MG TABLET PO SCH ×2 (11:23→18:12)
[2019-04-01] MEDS: FUROSEMIDE INJ/PF 20 MG/2 ML SDV IV SCH (11:23)
[2019-04-01] MEDS: POLYETHYLENE GLYCOL 3350 POWDER 17 GM/1 PACKET PO SCH ×2 (11:24→21:46)
[2019-04-01] MEDS: PYRIDOXINE HCL 50 MG TABLET PO SCH ×2 (11:33→21:21)
[2019-04-01] MEDS: ATORVASTATIN CALCIUM 80 MG TABLET PO SCH (18:12)
--- NOTE | 2019-04-01 18:26 | PDOC PROGRESS REPORT ---
Subjective Progress Note for:: 04/01/19 Subjective:: No adverse events overnight. No new complaints. They were troubled because from her last hospitalization in [facility] her lisinopril and nifedipine have been discontinued and she had been put on amlodipine, and so this change was made in her medications. Her blood pressure was still elevated and so she was recently started on clonidine just a few days ago. The day after she started on clonidine, she started to have some shortness of breath. She took it for the first time on a Sunday night, and late Sunday afternoon is when she first started getting short of breath. She said she thought it was her kidneys acting back up on her, but her creatinine has been normal. She is responded well to diuresis so far. Blood pressures have been acceptable. Reason For Visit: ACUTE RESPIRATORY FAILURE WITH HYPOXIA,CHF EXACERB Physical Exam Vital Signs: Temp Pulse Resp BP Pulse Ox 99.0 F 66 16 152/52 H 95 04/01/19 16:43 04/01/19 16:43 04/01/19 16:43 04/01/19 16:43 04/01/19 16:43 Intake & Output 03/31/19 04/01/19 04/02/19 06:59 06:59 06:59 Intake Total 740 Output Total 1100 2000 Balance -1100 -1260 Weight 76.36 kg 76.3 kg General appearance: PRESENT: no acute distress, cooperative, disheveled Respiratory exam: PRESENT: clear to auscultation dariusz, symmetrical, unlabored. ABSENT: accessory muscle use, chest wall tenderness, crackles, prolonged expiratory phas, rhonchi, tachypnea, wheezes Cardiovascular exam: PRESENT: RRR, +S1, +S2, systolic murmur - Right upper sternal border Pulses: PRESENT: normal carotid pulses Vascular exam: PRESENT: normal capillary refill GI/Abdominal exam: PRESENT: normal bowel sounds, soft. ABSENT: distended, guarding, rebound, tenderness Extremities exam: ABSENT: clubbing, pedal edema Musculoskeletal exam: PRESENT: normal inspection. ABSENT: deformity Neurological exam: PRESENT: alert, awake, oriented to person, oriented to place, oriented to time, oriented to situation Psychiatric exam: PRESENT: appropriate affect, normal mood Skin exam: PRESENT: dry, pallor, warm Results Laboratory Results: 03/30/19 22:25 04/01/19 05:57 04/01/19 05:57 Sodium 136.6 L Potassium 5.2 H Chloride 100 Carbon Dioxide 28 Anion Gap 9 BUN 24 H Creatinine 1.29 H Est GFR ( Amer) 48 L Est GFR (Non-Af Amer) 40 L Glucose 76 Calcium 8.4 03/30/19 03/30/19 03/31/19 22:25 22:25 04:49 Creatine Kinase 48 Troponin I < 0.012 NT-Pro-B Natriuret Pep 4850 H 03/31/19 03/31/19 03/31/19 04:49 10:15 10:15 Creatine Kinase 50 Troponin I < 0.012 < 0.012 NT-Pro-B Natriuret Pep 03/31/19 03/31/19 04/01/19 16:33 16:33 05:57 Creatine Kinase 49 Troponin I < 0.012 NT-Pro-B Natriuret Pep 4640 H Impressions: Chest X-Ray 03/30/19 22:37 IMPRESSION: Interval increase in multifocal bilateral airspace disease with superimposed small bilateral pleural effusions/bibasilar atelectasis. Pulmonary edema is a primary consideration. Multifocal pneumonia is considered less likely. copyright 2011 [employer]- All Rights Reserved Assessment and Plan - Diagnosis (1) Hypertensive emergency Is this a current diagnosis for this admission?: Yes Plan: Her echocardiogram is pending, to evaluate ventricular function as well as to assess her murmur, which she says is chronic. It is possible that she had some rebound hypertension from her first dose of clonidine. She is only taking it once a day, and so it is possible the effect wore off and that the rebound hypertension because her acute pulmonary edema. Pulmonary edema has essentially resolved. I have stopped her Lasix. She was comfortable on room air. We made the adjustments to her home medications that they requested will monitor her blood pressure to see how they respond. (2) Acute respiratory failure with hypoxia Is this a current diagnosis for this admission?: Yes Plan: Resolved - Time Time Spent with patient: 25-34 minutes
--- NOTE | 2019-04-01 19:21 | XCELERA REPORT ---
[address] [address] Transthoracic Echocardiogram Report Name: DIO JARQUIN I Age: 78 yrs Gender: Female : 1940 Patient Status: In[facility] Study Date: 04/01/2019 09:52 AM Height: 66 in Weight: 158 lb BSA: 1.8 m2 Procedure: A two-dimensional transthoracic echocardiogram with color flow and Doppler was performed. The study was technically limited with all images being suboptimal in quality. Study Quality: Technically suboptimal. Reason For Study: systolic murmur History: systolic murmur. Ordering Physician: SALUD WOMACK Performed By: Lenora Roberts Interpretation Summary The left ventricle is normal in size. There is normal left ventricular wall thickness. The left ventricular ejection fraction is within normal limits. LV EF is > than 65% Doppler measurements suggest normal left ventricular diastolic function The left ventricular wall motion is normal. There is no thrombus. There is no ventricular septal defect visualized. The right ventricle is normal in size and function. The right atrium is normal. The left atrium is mildly dilated. The interatrial septum is intact with no evidence for an atrial septal defect. There is no Doppler evidence for an interatrial shunt There is no evidence of mitral valve prolapse. There is no vegetation seen on the mitral valve. There is no mitral valve stenosis. There is a moderate amount of mitral regurgitation There is no aortic valvular vegetation. There is mild aortic stenosis There is a peak gradient of 21 mm of Hg. No hemodynamically significant valvular aortic stenosis. There is no LVOT obstruction. There is a trace amount of aortic regurgitation There is no tricuspid stenosis. There is a trace amount of tricuspid regurgitation There is mild pulmonary hypertension by echo RVSP is 33 to 38 mm of Hg , with RA mean of 5 to 10. There is no pulmonic valvular stenosis. There is a trace amount of pulmonic regurgitation The aortic root is normal size. The inferior vena cava appeared normal and decreased > 50% with respiration (RAP 5-10 mmHg) Small pericardial effusion. There are no echocardiographic or Doppler indications for cardiac tamponade Moderate size left pleural effusion. MMode/2D Measurements & Calculations RVDd: 2.9 cm LVIDd: 5.2 cm FS: 45.5 % Ao root diam: 3.0 cm IVSd: 0.93 cm LVIDs: 2.8 cm EDV(Teich): LVPWd: 1.1 cm 128.7 ml Ao root area: ESV(Teich): 7.1 cm2 30.3 ml EF(Teich): 76.5 % EDV(MOD-sp4): SV(MOD-sp4): 116.4 ml 70.4 ml ESV(MOD-sp4): 46.0 ml EF(MOD-sp4): 60.5 % Doppler Measurements & Calculations MV E max angella: MV dec slope: Ao V2 max: AI max angella: 138.1 cm/sec 232.5 cm/sec 331.8 cm/sec MV A max angella: 972.8 cm/sec2 Ao max PG: AI max P.0 mmHg 50.0 cm/sec MV dec time: 21.6 mmHg AI dec slope: MV E/A: 2.8 0.14 sec Ao V2 mean: 143.4 cm/sec 155.8 cm/sec2 AI P1/2t: 623.8 msec Ao mean P.9 mmHg Ao V2 VTI: 52.0 cm LV V1 max PG: PA V2 max: TR max angella: 4.8 mmHg 82.8 cm/sec 263.0 cm/sec LV V1 mean PG: PA max P.7 mmHg TR max P.4 mmHg 27.7 mmHg LV V1 max: 109.9 cm/sec LV V1 mean: 70.8 cm/sec LV V1 VTI: 24.5 cm LV dP/dt: 5656 mmHg/s Left Ventricle The left ventricle is normal in size. There is normal left ventricular wall thickness. The left ventricular ejection fraction is within normal limits. LV EF is > than 65%. Doppler measurements suggest normal left ventricular diastolic function. The left ventricular wall motion is normal. There is no thrombus. There is no ventricular septal defect visualized. Right Ventricle The right ventricle is normal in size and function. Atria The right atrium is normal. The left atrium is mildly dilated. The interatrial septum is intact with no evidence for an atrial septal defect. There is no Doppler evidence for an interatrial shunt. Mitral Valve There is no evidence of mitral valve prolapse. There is no vegetation seen on the mitral valve. There is no mitral valve stenosis. There is a moderate amount of mitral regurgitation. Aortic Valve There is no aortic valvular vegetation. There is mild aortic stenosis. There is a peak gradient of 21 mm of Hg. No hemodynamically significant valvular aortic stenosis. There is no LVOT obstruction. There is a trace amount of aortic regurgitation. Tricuspid Valve There is no tricuspid stenosis. There is a trace amount of tricuspid regurgitation. There is mild pulmonary hypertension by echo. RVSP is 33 to 38 mm of Hg , with RA mean of 5 to 10. Pulmonic Valve There is no pulmonic valvular stenosis. There is a trace amount of pulmonic regurgitation. Great Vessels The aortic root is normal size. The inferior vena cava appeared normal and decreased > 50% with respiration (RAP 5-10 mmHg). Effusions Small pericardial effusion. There are no echocardiographic or Doppler indications for cardiac tamponade. Moderate size left pleural effusion. : SALUD WOMACK > Lore Hay
[2019-04-01] MEDS ORDERED: CLONIDINE HCL 0.1 MG TABLET PO SCH (22:00)
[2019-04-02] MEDS: LEVOTHYROXINE SODIUM 0.1 MG TABLET PO SCH (06:24)
[2019-04-02] MEDS: LEVOTHYROXINE SODIUM 0.025 MG TABLET PO SCH (06:24)
[2019-04-02] MEDS: ASPIRIN 81 MG TABLET, ENT COATED PO SCH (09:28)
[2019-04-02] MEDS: CETIRIZINE 10 MG TABLET PO SCH (09:28)
[2019-04-02] MEDS: MULTIVITAMIN TABLET PO SCH (09:28)
[2019-04-02] MEDS: METOPROLOL SUCCINATE 50 MG TAB.SR.24H PO SCH (09:28)
[2019-04-02] MEDS: APIXABAN 5 MG TABLET PO SCH ×2 (09:28→17:05)
[2019-04-02] MEDS: AMLODIPINE BESYLATE 10 MG TABLET PO SCH (09:28)
[2019-04-02] MEDS: FLUTICASONE NASAL SPRAY 50 MCG/SPRY 120 SPRAY/16 GM NASL SCH (09:28)
[2019-04-02] MEDS: ISOSORBIDE DINITRATE 20 MG TABLET PO SCH ×2 (09:28→17:05)
[2019-04-02] MEDS: NITROGLYCERIN 5 MG (0.2 MG/HR) PATCH.TD24 TD SCH (09:29)
[2019-04-02] MEDS ORDERED: FUROSEMIDE 80 MG TABLET PO ONE (16:00)
--- NOTE | 2019-04-02 16:38 | Pulmonary Function Test ---
Pulmonary Function Test Date of Procedure:: 04/02/19 INDICATION:: Dyspnea Referring Provider: Dr. Loco Newman Adult Basic Education Teacher: Christina Baker RIM ROLLER OPERATOR, SENIOR MAINTENANCE MECHANIC - Report Spirometry: FVC 1.19 L 41% postbronchodilator 1.66 L 57% FEV1 0.96 L 44% postbronchodilator 1.21 L 56% FEV1/FVC % 61 postbronchodilator 73 predicted 74 FEF 25-75% 1.85 L 116% postbronchodilator 1.47 L 91% Impression: Mild obstructive ventilatory defect. Restrictive defect is inferred but cannot be diagnosed solely on spirometry alone. Restrictive defect may mask the degree of obstruction. Clinically indicated complete pulmonary function test would be warranted
[2019-04-02] MEDS: ATORVASTATIN CALCIUM 80 MG TABLET PO SCH (17:06)
--- NOTE | 2019-04-02 18:39 | PDOC PROGRESS REPORT ---
Subjective Progress Note for:: 04/02/19 Subjective:: I came in to see her this afternoon and she was on BiPAP. Her said that she put it on herself. Her says she had been on BiPAP most of the day. She denies any chest pain. She says that she just feels short of breath and the BiPAP makes her breathing easier. Reason For Visit: ACUTE RESPIRATORY FAILURE WITH HYPOXIA,CHF EXACERB Physical Exam Vital Signs: Temp Pulse Resp BP Pulse Ox 98.2 F 62 21 H 156/55 H 96 04/02/19 16:00 04/02/19 16:00 04/02/19 16:00 04/02/19 16:00 04/02/19 16:00 Intake & Output 04/01/19 04/02/19 04/03/19 06:59 06:59 06:59 Intake Total 740 960 Output Total 2000 Balance -1260 960 Weight 76.3 kg 80.4 kg General appearance: PRESENT: Mild distress, cooperative, disheveled Respiratory exam: PRESENT: Bilateral crackles, symmetrical, unlabored. ABSENT: accessory muscle use, chest wall tenderness, prolonged expiratory phas, rhonchi, tachypnea, wheezes Cardiovascular exam: PRESENT: RRR, +S1, +S2, systolic murmur - Right upper sternal border Pulses: PRESENT: normal carotid pulses Vascular exam: PRESENT: normal capillary refill GI/Abdominal exam: PRESENT: normal bowel sounds, soft. ABSENT: distended, guarding, rebound, tenderness Extremities exam: ABSENT: clubbing, pedal edema Musculoskeletal exam: PRESENT: normal inspection. ABSENT: deformity Neurological exam: PRESENT: alert, awake, oriented to person, oriented to place, oriented to time, oriented to situation Psychiatric exam: PRESENT: Anxious Skin exam: PRESENT: dry, pallor, warm Results Laboratory Results: 03/30/19 22:25 04/01/19 05:57 03/30/19 03/30/19 03/31/19 22:25 22:25 04:49 Creatine Kinase 48 Troponin I < 0.012 NT-Pro-B Natriuret Pep 4850 H 03/31/19 03/31/19 03/31/19 04:49 10:15 10:15 Creatine Kinase 50 Troponin I < 0.012 < 0.012 NT-Pro-B Natriuret Pep 0503/31/19 04/01/19 16:33 16:33 05:57 Creatine Kinase 49 Troponin I < 0.012 NT-Pro-B Natriuret Pep 4640 H Impressions: Chest X-Ray 03/30/19 22:37 IMPRESSION: Interval increase in multifocal bilateral airspace disease with superimposed small bilateral pleural effusions/bibasilar atelectasis. Pulmonary edema is a primary consideration. Multifocal pneumonia is considered less likely. copyright 2011 [employer]- All Rights Reserved Assessment and Plan - Diagnosis (1) Hypertensive emergency Is this a current diagnosis for this admission?: Yes Plan: On her echocardiogram she had mild to her stenosis, dilated left atrium, and mild to moderate pulmonary hypertension. I believe her hypertension probably triggered her pulmonary edema in the setting of the above-mentioned issues. I am putting her back on some Lasix to reduce her preload. I have also started her on some lisinopril. (2) Acute respiratory failure with hypoxia Is this a current diagnosis for this admission?: Yes Plan: She is back on BiPAP, with bibasilar crackles. I put her back on Lasix and will transfer her to the [facility] for closer monitoring. - Time Time Spent with patient: 25-34 minutes
[2019-04-02] MEDS: PYRIDOXINE HCL 50 MG TABLET PO SCH (21:48)
[2019-04-02] MEDS: LISINOPRIL 10 MG TABLET PO SCH (21:48)
[2019-04-02] MEDS: ALPRAZOLAM 0.5 MG TABLET PO SCH (21:48)
[2019-04-02] MEDS: FUROSEMIDE 40 MG TABLET PO SCH (21:49)
[2019-04-02] MEDS: POLYETHYLENE GLYCOL 3350 POWDER 17 GM/1 PACKET PO SCH (21:49)
[2019-04-03] MEDS: LEVOTHYROXINE SODIUM 0.025 MG TABLET PO SCH (06:23)
[2019-04-03] MEDS: FUROSEMIDE 40 MG TABLET PO SCH ×2 (06:24→15:16)
[2019-04-03] MEDS: LEVOTHYROXINE SODIUM 0.1 MG TABLET PO SCH (06:24)
[2019-04-03] MEDS: ISOSORBIDE DINITRATE 20 MG TABLET PO SCH ×2 (09:57→17:24)
[2019-04-03] MEDS: APIXABAN 5 MG TABLET PO SCH ×2 (09:57→17:24)
[2019-04-03] MEDS: MULTIVITAMIN TABLET PO SCH (09:57)
[2019-04-03] MEDS: ASPIRIN 81 MG TABLET, ENT COATED PO SCH (09:57)
[2019-04-03] MEDS: AMLODIPINE BESYLATE 10 MG TABLET PO SCH (09:57)
[2019-04-03] MEDS: CETIRIZINE 10 MG TABLET PO SCH (09:57)
[2019-04-03] MEDS: NITROGLYCERIN 5 MG (0.2 MG/HR) PATCH.TD24 TD SCH (09:58)
[2019-04-03] MEDS: METOPROLOL SUCCINATE 50 MG TAB.SR.24H PO SCH (09:58)
[2019-04-03] MEDS: FLUTICASONE NASAL SPRAY 50 MCG/SPRY 120 SPRAY/16 GM NASL SCH (09:58)
[2019-04-03 10:40] LABS: HEMATOCRIT 25.8 % (36.0-47.0); HEMOGLOBIN 8.9 g/dL (12.0-15.5); MEAN CORPUSCULAR HEMOGLOBIN 30.2 pg (27.0-33.4); MEAN CORPUSCULAR HGB CONC 34.4 g/dL (32.0-36.0); MEAN CORPUSCULAR VOLUME 88 fl (80-97); PLATELET COUNT 277 10^3/uL (150-450); RED BLOOD COUNT 2.95 10^6/uL (3.72-5.28); RED CELL DISTRIBUTION WIDTH 14.7 % (11.5-14.0); WHITE BLOOD COUNT 6.8 10^3/uL (4.0-10.5)
[2019-04-03 11:09] LABS: ANION GAP 9 (5-19); BLOOD UREA NITROGEN 32 mg/dL (7-20); CALCIUM 8.4 mg/dL (8.4-10.2); CARBON DIOXIDE 28 mmol/L (22-30); CHLORIDE 101 mmol/L (98-107); GLUCOSE 98 mg/dL (75-110); POTASSIUM 4.2 mmol/L (3.6-5.0); SODIUM 138.4 mmol/L (137-145)
--- NOTE | 2019-04-03 13:41 | RADIOLOGY REPORT (SQ) ---
EXAM DESCRIPTION: CHEST SINGLE VIEW COMPLETED DATE/TIME: 04/03/2019 1:21 pm REASON FOR STUDY: dyspnea COMPARISON: AP chest 03/30/2019, 03/23/2019, 03/03/2019 CT angio chest 03/03/2019 EXAM PARAMETERS: NUMBER OF VIEWS: One view. TECHNIQUE: Single frontal radiographic view of the chest acquired. RADIATION DOSE: NA LIMITATIONS: None. FINDINGS: LUNGS AND PLEURA: Persistent small left pleural effusion with basilar airspace disease ate lectasis versus pneumonia. Right lung bases free of acute infiltrates. Chronic pulmonary fibrosis around the periphery of the r ight lung. No pneumothorax MEDIASTINUM AND HILAR STRUCTURES: No masses. Contour normal. HEART AND VASCULAR STRUCTURES: Stable cardiomegaly BONES: No acute findings. HARDWARE: Unchanged left-sided central venous dialysis catheter OTHER: No other significant finding. IMPRESSION: Persistent small left pleural effusion and basilar airspace disease atelectasis versus p neumonia TECHNICAL DOCUMENTATION: JOB ID: [id number] [employer]- All Rights Reserved Reading location - IP/workstation name: LC
[2019-04-03] MEDS: ATORVASTATIN CALCIUM 80 MG TABLET PO SCH (17:24)
--- NOTE | 2019-04-03 17:32 | PDOC PROGRESS REPORT ---
Subjective Progress Note for:: 04/03/19 Subjective:: No adverse events overnight. She was back on room air and feeling better this morning. Her urine output was good. She is not trying to get up and ambulate yet. Reason For Visit: ACUTE RESPIRATORY FAILURE WITH HYPOXIA,CHF EXACERB Physical Exam Vital Signs: Temp Pulse Resp BP Pulse Ox 97.9 F 69 18 151/58 H 96 04/03/19 14:45 04/03/19 14:45 04/03/19 14:45 04/03/19 14:45 04/03/19 14:45 Intake & Output 04/02/19 04/03/19 04/04/19 06:59 06:59 06:59 Intake Total 960 480 525 Output Total 800 400 Balance 960 -320 125 Weight 80.4 kg 74.8 kg General appearance: PRESENT: no acute distress, cooperative, disheveled Respiratory exam: PRESENT: crackles - These were mostly heard in the upper lobes bilaterally, symmetrical, unlabored. ABSENT: accessory muscle use, prolonged expiratory phas, rhonchi, tachypnea, wheezes Cardiovascular exam: PRESENT: RRR, +S1, +S2, systolic murmur - Right upper sternal border Pulses: PRESENT: normal carotid pulses Vascular exam: PRESENT: normal capillary refill GI/Abdominal exam: PRESENT: normal bowel sounds, soft. ABSENT: distended, guarding, rebound, tenderness Extremities exam: ABSENT: clubbing, pedal edema Musculoskeletal exam: PRESENT: normal inspection. ABSENT: deformity Neurological exam: PRESENT: alert, awake, oriented to person, oriented to place, oriented to time, oriented to situation Psychiatric exam: PRESENT: appropriate affect, normal mood Skin exam: PRESENT: dry, warm Results Laboratory Results: 04/03/19 10:16 04/03/19 10:16 04/03/19 04/03/19 10:16 10:16 WBC 6.8 RBC 2.95 L Hgb 8.9 L Hct 25.8 L MCV 88 MCH 30.2 MCHC 34.4 RDW 14.7 H Plt Count 277 Sodium 138.4 Potassium 4.2 Chloride 101 Carbon Dioxide 28 Anion Gap 9 BUN 32 H Creatinine 1.79 H Est GFR ( Amer) 33 L Est GFR (Non-Af Amer) 27 L Glucose 98 Calcium 8.4 03/30/19 03/30/19 03/31/19 22:25 22:25 04:49 Creatine Kinase 48 Troponin I < 0.012 NT-Pro-B Natriuret Pep 4850 H 03/31/19 03/31/19 03/31/19 04:49 10:15 10:15 Creatine Kinase 50 Troponin I < 0.012 < 0.012 NT-Pro-B Natriuret Pep 03/31/19 03/31/19 04/01/19 16:33 16:33 05:57 Creatine Kinase 49 Troponin I < 0.012 NT-Pro-B Natriuret Pep 4640 H 04/03/19 10:16 Creatine Kinase Troponin I NT-Pro-B Natriuret Pep 7500 H Impressions: Chest X-Ray 04/03/19 00:00 IMPRESSION: Persistent small left pleural effusion and basilar airspace disease atelectasis versus pneumonia Assessment and Plan - Diagnosis (1) Hypertensive emergency Is this a current diagnosis for this admission?: Yes Plan: This is a resolved. Blood pressure control has improved. Lisinopril was added yesterday. We will cut her Lasix back to 20 mg once a day. (2) Acute respiratory failure with hypoxia Is this a current diagnosis for this admission?: Yes Plan: Resolved. She is back on room air was comfortable. I am going to try to ambulate her. I was looking at some of her old imaging tests in about a month ago she had a CT scan of the chest which was comparable in the pattern of its findings to the chest x-ray she was admitted with. She had what looked to be possible developing pulmonary edema with mixed infiltrates on CT a month ago, and the areas on the scan were consistent with the areas that we saw with possible developing pulmonary edema on chest x-ray. These findings were persistent with a chest x-ray we got today. There was some mild improvement in the basilar infiltrates. There was concern that this could be actually pulmonary fibrosis. She is not on any of the usual medications that might cause this. Because I think she is back on the dry side, if her breathing deteriorates, I may give her a trial of steroids. I will definitely have her follow-up with a shotgun shell assembly machine adjuster as an outpatient, but if she decompensates I will have a shotgun shell assembly machine adjuster see her here. (3) [id number] kidney injury Qualifiers: Acute renal failure type: unspecified Chronic kidney disease stage: stage 3 (moderate) Qualified Code(s): N17.9 - Acute kidney failure, unspecified; N18.3 - Chronic kidney disease, stage 3 (moderate) Is this a current diagnosis for this admission?: Yes Plan: Creatinine is up a bit from diuresis. We are de-escalating her Lasix. (4) Anemia Qualifiers: Anemia type: iron deficiency Iron deficiency anemia type: inadequate dietary iron intake Qualified Code(s): D50.8 - Other iron deficiency anemias Is this a current diagnosis for this admission?: Yes Plan: We will start iron supplement for mild iron deficiency (5) CHF exacerbation Qualifiers: Heart failure type: unspecified Qualified Code(s): I50.9 - Heart failure, unspecified Is this a current diagnosis for this admission?: No Plan: This patient does not have heart failure per her echocardiogram. She does have some mild to moderate pulmonary hypertension. - Time Time Spent with patient: 25-34 minutes
[2019-04-03] MEDS: PYRIDOXINE HCL 50 MG TABLET PO SCH (21:40)
[2019-04-03] MEDS: ALPRAZOLAM 0.5 MG TABLET PO SCH (21:40)
[2019-04-03] MEDS: POLYETHYLENE GLYCOL 3350 POWDER 17 GM/1 PACKET PO SCH (21:40)
[2019-04-03] MEDS: LISINOPRIL 10 MG TABLET PO SCH (21:40)
[2019-04-04] MEDS: LEVOTHYROXINE SODIUM 0.1 MG TABLET PO SCH (05:30)
[2019-04-04] MEDS: LEVOTHYROXINE SODIUM 0.025 MG TABLET PO SCH (05:31)
[2019-04-04] MEDS: NITROGLYCERIN 5 MG (0.2 MG/HR) PATCH.TD24 TD SCH (09:35)
[2019-04-04] MEDS: APIXABAN 5 MG TABLET PO SCH ×2 (09:36→17:27)
[2019-04-04] MEDS: CETIRIZINE 10 MG TABLET PO SCH (09:36)
[2019-04-04] MEDS: MULTIVITAMIN TABLET PO SCH (09:36)
[2019-04-04] MEDS: ISOSORBIDE DINITRATE 20 MG TABLET PO SCH ×2 (09:36→17:27)
[2019-04-04] MEDS: METOPROLOL SUCCINATE 50 MG TAB.SR.24H PO SCH (09:36)
[2019-04-04] MEDS: AMLODIPINE BESYLATE 10 MG TABLET PO SCH (09:36)
[2019-04-04] MEDS: FUROSEMIDE 20 MG TABLET PO SCH (09:37)
[2019-04-04] MEDS: ASPIRIN 81 MG TABLET, ENT COATED PO SCH (09:37)
[2019-04-04] MEDS: FLUTICASONE NASAL SPRAY 50 MCG/SPRY 120 SPRAY/16 GM NASL SCH (09:43)
[2019-04-04 10:29] LABS: ANION GAP 12 (5-19); BLOOD UREA NITROGEN 38 mg/dL (7-20); CALCIUM 8.5 mg/dL (8.4-10.2); CARBON DIOXIDE 27 mmol/L (22-30); CHLORIDE 100 mmol/L (98-107); GLUCOSE 119 mg/dL (75-110); POTASSIUM 4.1 mmol/L (3.6-5.0); SODIUM 138.8 mmol/L (137-145)
[2019-04-04] MEDS: ATORVASTATIN CALCIUM 80 MG TABLET PO SCH (17:27)
--- NOTE | 2019-04-04 18:17 | PDOC PROGRESS REPORT ---
Subjective Progress Note for:: 04/04/19 Subjective:: No adverse events overnight. She is feeling pretty good today. No cough or shortness of breath. Her oxygen saturations on her 6-minute walk test today did not go below 91% on room air. She apparently walked about 300 feet over the span of about 8 minutes. Reason For Visit: ACUTE RESPIRATORY FAILURE WITH HYPOXIA,CHF EXACERB Physical Exam Vital Signs: Temp Pulse Resp BP Pulse Ox 97.9 F 70 18 143/51 H 96 04/04/19 14:18 04/04/19 14:18 04/04/19 14:18 04/04/19 14:18 04/04/19 14:18 Intake & Output 04/03/19 04/04/19 04/05/19 06:59 06:59 06:59 Intake Total 480 525 680 Output Total 800 1250 500 Balance -320 -725 180 Weight 74.8 kg 74.1 kg General appearance: PRESENT: no acute distress, cooperative, disheveled Respiratory exam: PRESENT: crackles -faint bibasilar with some faint right upper lobe crackles which sounded very dry, symmetrical, unlabored. ABSENT: accessory muscle use, prolonged expiratory phas, rhonchi, tachypnea, wheezes Cardiovascular exam: PRESENT: RRR, +S1, +S2, systolic murmur - Right upper sternal border Pulses: PRESENT: normal carotid pulses Vascular exam: PRESENT: normal capillary refill GI/Abdominal exam: PRESENT: normal bowel sounds, soft. ABSENT: distended, guarding, rebound, tenderness Extremities exam: ABSENT: clubbing, pedal edema Musculoskeletal exam: PRESENT: normal inspection. ABSENT: deformity Neurological exam: PRESENT: alert, awake, oriented to person, oriented to place, oriented to time, oriented to situation Psychiatric exam: PRESENT: appropriate affect, normal mood Skin exam: PRESENT: dry, warm Results Laboratory Results: 04/03/19 10:16 04/04/19 09:30 04/04/19 09:30 Sodium 138.8 Potassium 4.1 Chloride 100 Carbon Dioxide 27 Anion Gap 12 BUN 38 H Creatinine 1.67 H Est GFR ( Amer) 36 L Est GFR (Non-Af Amer) 30 L Glucose 119 H Calcium 8.5 03/30/19 03/30/19 03/31/19 22:25 22:25 04:49 Creatine Kinase 48 Troponin I < 0.012 NT-Pro-B Natriuret Pep 4850 H 03/31/19 03/31/19 03/31/19 04:49 10:15 10:15 Creatine Kinase 50 Troponin I < 0.012 < 0.012 NT-Pro-B Natriuret Pep 03/31/19 03/31/19 04/01/19 16:33 16:33 05:57 Creatine Kinase 49 Troponin I < 0.012 NT-Pro-B Natriuret Pep 4640 H 04/03/19 10:16 Creatine Kinase Troponin I NT-Pro-B Natriuret Pep 7500 H Impressions: Chest X-Ray 04/03/19 00:00 IMPRESSION: Persistent small left pleural effusion and basilar airspace disease atelectasis versus pneumonia Assessment and Plan - Diagnosis (1) Hypertensive emergency Is this a current diagnosis for this admission?: Yes Plan: This is a resolved. Blood pressure control has improved. Lisinopril was added. Lasix 20 mg once a day. (2) Acute respiratory failure with hypoxia Is this a current diagnosis for this admission?: Yes Plan: Resolved. Partially due to some pulmonary edema of her hypertensive emergency, but I also believe she has a component of pulmonary fibrosis. We will get her follow-up with pulmonology as an outpatient. She also has some pulmonary hypertension with a dilated left atrium and some mild aortic stenosis. (3) [id number]-[id number] kidney injury Qualifiers: Acute renal failure type: unspecified Chronic kidney disease stage: stage 3 (moderate) Qualified Code(s): N17.9 - Acute kidney failure, unspecified; N18.3 - Chronic kidney disease, stage 3 (moderate) Is this a current diagnosis for this admission?: Yes Plan: Resolved. Creatinine had bumped up yesterday but is now back down to her normal (4) Anemia Qualifiers: Anemia type: iron deficiency Iron deficiency anemia type: inadequate dietary iron intake Qualified Code(s): D50.8 - Other iron deficiency anemias Is this a current diagnosis for this admission?: Yes Plan: We will start iron supplement for mild iron deficiency (5) CHF exacerbation Qualifiers: Heart failure type: unspecified Qualified Code(s): I50.9 - Heart failure, unspecified Is this a current diagnosis for this admission?: No Plan: This patient does not have heart failure per her echocardiogram. She does have some mild to moderate pulmonary hypertension. - Time Time Spent with patient: 15-24 minutes - Plan Summary Plan Summary: Physical therapy eval was ordered, but she apparently did 300 feet during her walking test today. Possible discharge tomorrow.
[2019-04-04] MEDS: LISINOPRIL 10 MG TABLET PO SCH (21:26)
[2019-04-04] MEDS: POLYETHYLENE GLYCOL 3350 POWDER 17 GM/1 PACKET PO SCH (21:27)
[2019-04-04] MEDS: PYRIDOXINE HCL 50 MG TABLET PO SCH (21:27)
[2019-04-04] MEDS: ALPRAZOLAM 0.5 MG TABLET PO SCH (21:27)
[2019-04-05] MEDS: LEVOTHYROXINE SODIUM 0.1 MG TABLET PO SCH (05:44)
[2019-04-05] MEDS: LEVOTHYROXINE SODIUM 0.025 MG TABLET PO SCH (05:45)
[2019-04-05] MEDS: APIXABAN 5 MG TABLET PO SCH (10:26)
[2019-04-05] MEDS: MULTIVITAMIN TABLET PO SCH (10:26)
[2019-04-05] MEDS: CETIRIZINE 10 MG TABLET PO SCH (10:26)
[2019-04-05] MEDS: ASPIRIN 81 MG TABLET, ENT COATED PO SCH (10:26)
[2019-04-05] MEDS: FUROSEMIDE 20 MG TABLET PO SCH (10:27)
[2019-04-05] MEDS: AMLODIPINE BESYLATE 10 MG TABLET PO SCH (10:27)
[2019-04-05] MEDS: ISOSORBIDE DINITRATE 20 MG TABLET PO SCH (10:27)
[2019-04-05] MEDS: NITROGLYCERIN 5 MG (0.2 MG/HR) PATCH.TD24 TD SCH (10:28)
[2019-04-05] MEDS: METOPROLOL SUCCINATE 50 MG TAB.SR.24H PO SCH (10:28)
[2019-04-05] MEDS: FLUTICASONE NASAL SPRAY 50 MCG/SPRY 120 SPRAY/16 GM NASL SCH (10:30)
[2019-04-05 12:16] VITALS: BP 174/60
--- NOTE | 2019-04-05 16:03 | PDOC DISCHARGE SUMMARY ---
General - Admit/Disc Date/PCP Admission Date/Primary Care Provider: 03/31/19 12:14 ASHLEY YUSUF JR, MD Discharge Date: 04/05/19 - Discharge Diagnosis (1) Hypertensive emergency Is this a current diagnosis for this admission?: Yes Summary: She apparently got a little short of breath the other day and her anxiety went up and subsequently her blood pressure went up abruptly and she went into pulmonary edema. A couple of her usual blood pressure medications had recently been discontinued because of a bout of acute kidney injury. Fortunately she responded well to diuresis and her blood pressure was pretty well controlled when she was not too anxious. (2) Acute respiratory failure with hypoxia Is this a current diagnosis for this admission?: Yes Summary: Resolved. After some gentle diuresis, she did 300 feet on a 6-minute walk test and her oxygen saturation never dropped below 91%. (3) [id number] kidney injury Is this a current diagnosis for this admission?: Yes Summary: Creatinine bumped a little bit after some diuresis but then came back down as we adjusted her Lasix to a maintenance level. (4) Anemia Is this a current diagnosis for this admission?: Yes Summary: She has some chronic anemia that is stable in his usual range (5) CHF exacerbation Is this a current diagnosis for this admission?: No Summary: She does not have chronic heart failure - Additional Information Resuscitation Status: Full Code Discharge Diet: Cardiac Discharge Activity: Activity As Tolerated, Balance Activity w/Rest, Weigh Daily Prescriptions: Albuterol Sulfate [Proventil Hfa] 6.7 gm IH Q4HP PRN #1 [email or web address] PRN Reason: Furosemide [Lasix 20 mg Tablet] 20 mg PO DAILY #30 tablet Lisinopril [Prinivil 10 mg Tablet] 10 mg PO QHS #30 tablet Home Medications: Alprazolam [Xanax 0.5 mg Tablet] 0.5 mg PO HSP PRN 03/31/19 Apixaban [Eliquis 5 mg Tablet] 5 mg PO Q12 03/31/19 Aspirin [Ecotrin 81 mg EC Tablet] 81 mg PO DAILY 03/31/19 Atorvastatin Calcium [Lipitor 80 mg Tablet] 80 mg PO DAILY 03/31/19 Cetirizine HCl [Zyrtec 10 mg Tablet] 10 mg PO DAILY 03/31/19 Isosorbide Dinitrate [Isordil Titradose 20 mg Tablet] 20 mg PO BID 03/31/19 Levothyroxine Sodium 125 mcg PO Q6AM 03/31/19 Metoprolol Succinate [Toprol XL 100 mg Tablet] 100 mg PO DAILY 03/31/19 Multivitamin [Daily Multiple Vitamin] 1 each PO DAILY 03/31/19 Pyridoxine HCl [Vitamin B-6 Tablet 50 mg] 50 mg PO DAILY 03/31/19 Docusate Sodium [Colace 100 mg Capsule] 100 mg PO BID 04/01/19 Fluticasone/Salmeterol [Advair HFA 115-21 mcg Inhaler] 2 puff IH BID 04/01/19 Sodium Chlor,Bicarb/Nasl Rinse [[place] Plus Kit] 1 each NS DAILY 04/01/19 Tiotropium [place] [Spiriva Respimat] 2 puff IH DAILY 04/01/19 Albuterol Sulfate [Proventil Hfa] 6.7 gm IH Q4HP PRN #1 hfa.[email or web address] 04/05/19 Amlodipine Besylate [Norvasc 10 mg Tablet] 10 mg PO DAILY tablet 04/05/19 Furosemide [Lasix 20 mg Tablet] 20 mg PO DAILY #30 tablet 04/05/19 Lisinopril [Prinivil 10 mg Tablet] 10 mg PO QHS #30 tablet 04/05/19 History of Present Illness History of Present Illness: DIO JARQUIN I is a 78 year old female with a past medical history of hypertension, congestive heart failure, tobacco Dependence and recent acute renal failure. Details of her acute renal failure are unclear but she was treated at [facility] and has a left sided chest wall catheter in place as she required less than 2 weeks of hemodialysis and was discontinued 4 days ago. Today she presents with 24 hours of shortness of breath and perceived weight gain. In the emergency room she is found to have uncontrolled systolic blood pressure in the 170s, a hemoglobin of 9.6, GFR of 48, BNP of 4800. She receives IV Lasix, BiPAP as ordered but she refuses and is referred to the hospitalist for admission. She denies chest pain nausea vomiting diaphoresis. She admits to persistent tobacco dependence and appears anxious. Hospital Course Hospital Course: She did better after some diuresis and blood pressure control, and she was taken off Lasix to see how she would respond. She recently been hospitalized after she got an acute kidney injury from an as yet undetermined reason that was severe enough that she required dialysis for 2 weeks. She just been taken off dialysis and was about to follow-up to see about getting her permacath removed when she went up in the hospital with fluid overload. It was thought that she was getting a little overloaded again. She had a really high blood pressure and had a little bit of pulmonary and leg edema. She did respond well to diuresis, but because she had had 2 medications discontinued for blood pressure after that hospitalization, her blood pressure went back up and she started to accumulate fluid again. Blood pressure medication was adjusted and she responded well again to diuresis. At one point her creatinine bumped a little bit but once her Lasix was dropped back to once a day her fluid balance was very good and her creatinine returned to his normal range. She had some flash pulmonary edema because of the acute hypertension, and she does not have congestive heart failu re. She does have some pulmonary hypertension on echocardiogram. She also has evidence on chest x-ray and CT scan of some pulmonary fibrosis, and has dry crackles on lung exam at baseline. She is going to follow-up with Dr. Zamudio in his office for further testing, because she is being treated for COPD but she has not been formally diagnosed. She walked 300 feet for physical therapy and her oxygen saturations never dropped below 91%. Physical therapy did recommend a 2 wheel walker and home physical therapy. Her labs and examination were reassuring and she was discharged home in good condition. Physical Exam Vital Signs: Temp Pulse Resp BP Pulse Ox 97.9 F 64 18 174/60 H 99 04/05/19 13:03 04/05/19 13:03 04/05/19 13:03 04/05/19 13:03 04/05/19 13:03 Intake & Output 04/04/19 04/05/19 04/06/19 06:59 06:59 06:59 Intake Total 525 680 Output Total 1250 700 Balance -725 -20 Weight 74.1 kg 76.3 kg General appearance: PRESENT: no acute distress, cooperative, disheveled Respiratory exam: PRESENT: crackles -faint bibasilar with some faint right upper lobe crackles which sounded very dry, symmetrical, unlabored. ABSENT: accessory muscle use, prolonged expiratory phas, rhonchi, tachypnea, wheezes Cardiovascular exam: PRESENT: RRR, +S1, +S2, systolic murmur - Right upper sternal border Pulses: PRESENT: normal carotid pulses Vascular exam: PRESENT: normal capillary refill GI/Abdominal exam: PRESENT: normal bowel sounds, soft. ABSENT: distended, guarding, rebound, tenderness Extremities exam: ABSENT: clubbing, pedal edema Musculoskeletal exam: PRESENT: normal inspection. ABSENT: deformity Neurological exam: PRESENT: alert, awake, oriented to person, oriented to place, oriented to time, oriented to situation Psychiatric exam: PRESENT: appropriate affect, normal mood Skin exam: PRESENT: dry, warm Results Laboratory Results: 04/03/19 10:16 04/04/19 09:30 03/30/19 03/30/19 03/31/19 22:25 22:25 04:49 Creatine Kinase 48 Troponin I < 0.012 NT-Pro-B Natriuret Pep 4850 H 03/31/19 03/31/19 03/31/19 04:49 10:15 10:15 Creatine Kinase 50 Troponin I < 0.012 < 0.012 NT-Pro-B Natriuret Pep 03/31/19 03/31/19 04/01/19 16:33 16:33 05:57 Creatine Kinase 49 Troponin I < 0.012 NT-Pro-B Natriuret Pep 4640 H 04/03/19 10:16 Creatine Kinase Troponin I NT-Pro-B Natriuret Pep 7500 H Impressions: Chest X-Ray 04/03/19 00:00 IMPRESSION: Persistent small left pleural effusion and basilar airspace disease atelectasis versus pneumonia Qualifiers - * PATIENT BEING DISCHARGED WITH ANY OF THE FOLLOWING DIAGNOSIS: No Acute Heart Failure Is this a Heart Failure Patient?: No Plan Time Spent: Greater than 30 Minutes
== END 2019-04-05 13:45 | disposition home health service (06) | DRG 189 ==
LOC: ER 22:07 → EH 03-31 01:53 → 5 03-31 04:07 → OBSVTOIN 03-31 12:14 → 3S 04-02 18:41
PROVIDERS: ADMIT Internal Medicine; ATTEND Internal Medicine
DX: J81.0 Acute pulmonary edema (principal); J96.01 Acute respiratory failure with hypoxia; I16.1 Hypertensive emergency; N17.9 Acute kidney failure, unspecified; I27.20 Pulmonary hypertension, unspecified; Z96.641 Presence of right artificial hip joint; I10 Essential (primary) hypertension; J84.10 Pulmonary fibrosis, unspecified; J44.9 Chronic obstructive pulmonary disease, unspecified; F17.200 Nicotine dependence, unspecified, uncomplicated; F41.9 Anxiety disorder, unspecified; D50.8 Other iron deficiency anemias; Z90.49 Acquired absence of other specified parts of digestive tract; Z82.49 Family history of ischemic heart disease and other diseases of the circulatory system; Z79.82 Long term (current) use of aspirin; Z79.899 Other long term (current) drug therapy; Z79.01 Long term (current) use of anticoagulants
CPT/HCPCS: 36415; 71045; 80048; 80053; 82550; 82607; 82728; 82746; 82803; 83540; 83550; 83880; 84443; 84484; 85025; 85027; 85045; 93005; 93010; 93306; 94060; 94640; 94660; 96374; 99285; G0378; J1644; J1940; J3490